=== PATIENT | male | born 1935 | race Caucasian/White ===

== ENCOUNTER → 2018-07-13 | Outpatient (CLI) | payer MEDICARE, OTHER ==
[2018-07-13 19:52] LABS: BASO % 0.4 % (0.0-1.0); EOS # 0.4 10^3/uL (0.0-0.50); EOS % 5.5 % (0.0-3.0); HEMOGLOBIN 13.5 g/dl (13.5-17.5); IMMATURE GRANULOCYTE % 0.9 % (0-3.0); LYMPH # 2.1 10^3/uL (1.5-4.5); LYMPH % 30.1 % (24.0-44.0); MEAN CORPUSCULAR HEMOGLOBIN 29.9 pg (27.0-33.0); MEAN CORPUSCULAR HGB CONC 32.1 g/dl (32.0-36.5); MEAN CORPUSCULAR VOLUME 92.9 fl (80.0-96.0); MONO # 0.8 10^3/uL (0.0-0.8); MONO % 12.3 % (0.0-5.0); NEUTROPHILS # 3.5 10^3/uL (1.8-7.7); NEUTROPHILS % 50.8 % (36.0-66.0); PLATELET COUNT, AUTOMATED 278 10^3/uL (150-450); RED BLOOD COUNT 4.52 10^6/uL (4.30-6.10); RED CELL DISTRIBUTION WIDTH 12.3 % (11.5-14.5); WHITE BLOOD COUNT 6.9 10^3/uL (4.0-10.0)
[2018-07-13 19:57] LABS: ALBUMIN 3.7 GM/DL (3.2-5.2); ALBUMIN/GLOBULIN RATIO 1.28 (1.00-1.93); ALKALINE PHOSPHATASE 62 U/L (45-117); ALT/SGPT 18 U/L (12-78); ANION GAP 6 MEQ/L (8-16); AST/SGOT 11 U/L (7-37); BILIRUBIN,TOTAL 0.3 MG/DL (0.2-1.0); BLOOD UREA NITROGEN 14 MG/DL (7-18); CALCIUM LEVEL 8.9 MG/DL (8.8-10.2); CARBON DIOXIDE LEVEL 28 MEQ/L (21-32); CHLORIDE LEVEL 108 MEQ/L (98-107); CREATININE FOR GFR 1.08 MG/DL (0.70-1.30); GLOMERULAR FILTRATION RATE > 60.0 (>35); GLUCOSE, FASTING 114 MG/DL (70-100); POTASSIUM SERUM 4.8 MEQ/L (3.5-5.1); SODIUM LEVEL 142 MEQ/L (136-145); TOTAL PROTEIN 6.6 GM/DL (6.4-8.2)
[2018-07-13 20:04] LABS: ESTIMATED AVERAGE GLUCOSE 137 MG/DL (60-110); HEMOGLOBIN A1c 6.4 %; TOTAL 25(OH) VITAMIN D 28.4 NG/ML (30.0-100.0)
[2018-07-13 20:06] LABS: MALB URINE SIEMENS 75.1 MG/L
[2018-07-13 20:07] LABS: MAU/CREAT RATIO 57.3 MCG/MG (0.0-30.0)
== END ==
LOC: M WUC 16:12
DX: E11.9 Type 2 diabetes mellitus without complications (principal); Z51.81 Encounter for therapeutic drug level monitoring; Z79.899 Other long term (current) drug therapy
CPT/HCPCS: 80053

== ENCOUNTER 2018-08-29 13:37 | Emergency (ER) | payer MEDICARE, OTHER ==
[2018-08-29 14:24] LABS: BEDSIDE GLUCOSE 100 MG/DL (83-110)
[2018-08-29 14:25] LABS: BASO % 0.2 % (0.0-1.0); EOS # 0.3 10^3/uL (0.0-0.50); EOS % 3.6 % (0.0-3.0); HEMATOCRIT 42.8 % (42.0-52.0); HEMOGLOBIN 14.1 g/dl (13.5-17.5); IMMATURE GRANULOCYTE % 0.7 % (0-3.0); LYMPH # 2.4 10^3/uL (1.5-4.5); LYMPH % 28.5 % (24.0-44.0); MEAN CORPUSCULAR HEMOGLOBIN 29.9 pg (27.0-33.0); MEAN CORPUSCULAR HGB CONC 32.9 g/dl (32.0-36.5); MEAN CORPUSCULAR VOLUME 90.7 fl (80.0-96.0); MONO # 0.9 10^3/uL (0.0-0.8); MONO % 10.9 % (0.0-5.0); NEUTROPHILS # 4.8 10^3/uL (1.8-7.7); NEUTROPHILS % 56.1 % (36.0-66.0); PLATELET COUNT, AUTOMATED 275 10^3/uL (150-450); RED BLOOD COUNT 4.72 10^6/uL (4.30-6.10); WHITE BLOOD COUNT 8.5 10^3/uL (4.0-10.0)
[2018-08-29 14:42] LABS: AMMONIA < 10 uMOL/L (<32)
[2018-08-29 15:01] LABS: KETONE, URINE AUTO RFX TRACE mg/dL (NEGATIVE); LEUKOCYTE ESTERASE UR AUTO RFX NEGATIVE (NEGATIVE); NITRITE, URINE AUTO RFX NEGATIVE (NEGATIVE); RBC, URINE AUTO RFX 4 /HPF (0-3); SPECIFIC GRAVITY UR AUTO RFX 1.018 (1.002-1.035); SQUAM EPITHELIAL CELL UR AURFX 0 /HPF (0-6); WBC, URINE AUTO RFX 2 /HPF (0-3)
[2018-08-29 15:04] LABS: ALBUMIN 3.9 GM/DL (3.2-5.2); ALKALINE PHOSPHATASE 59 U/L (45-117); ALT/SGPT 18 U/L (12-78); ANION GAP 8 MEQ/L (8-16); AST/SGOT 8 U/L (7-37); BILIRUBIN,DIRECT 0.1 MG/DL (0.0-0.2); BILIRUBIN,TOTAL 0.5 MG/DL (0.2-1.0); BLOOD UREA NITROGEN 19 MG/DL (7-18); CALCIUM LEVEL 8.9 MG/DL (8.8-10.2); CARBON DIOXIDE LEVEL 26 MEQ/L (21-32); CHLORIDE LEVEL 105 MEQ/L (98-107); CK-MB VALUE MASS < 1.0 NG/ML (<3.6); CPK CREATINE PHOSPHOKINASE 46 U/L (39-308); CREATININE FOR GFR 1.14 MG/DL (0.70-1.30); GLOMERULAR FILTRATION RATE > 60.0 (>35); GLUCOSE, FASTING 103 MG/DL (70-100); MB/CK RELATIVE INDEX 2.17 (< OR =4); POTASSIUM SERUM 4.4 MEQ/L (3.5-5.1); SODIUM LEVEL 139 MEQ/L (136-145); TOTAL PROTEIN 6.9 GM/DL (6.4-8.2); TROPONIN I < 0.02 NG/ML (< 0.10)
== END 2018-08-29 16:26 | disposition home or self-care (01) ==
LOC: M ED 13:37
DX: R53.1 Weakness (principal); G20 Parkinson's disease; I10 Essential (primary) hypertension; E78.9 Disorder of lipoprotein metabolism, unspecified; G47.30 Sleep apnea, unspecified; M19.90 Unspecified osteoarthritis, unspecified site; Z86.73 Personal history of transient ischemic attack (TIA), and cerebral infarction without residual deficits; Z79.899 Other long term (current) drug therapy; Z87.891 Personal history of nicotine dependence
CPT/HCPCS: 71045

== ENCOUNTER → 2018-11-04 | Outpatient (CLI) | payer MEDICARE, OTHER ==
[~2018-11-04] MED LIST: AGGR1CAP; ASPI1CAP3; ATOR1TAB19; CBD OIL; CITA20TA4; E-Z-PAQUE 96% w/w SUSP 176GM BTL As Ordered ONE; LOSA25TA14; RASA1TAB; ROPI1TAB; TRAZ-160; VARIBAR NECTAR 40% w/v 240ML SUSP BTL As Ordered ONE; VARIBAR PUDDING 40% w/v 230ML TUBE As Ordered ONE; VITA200016 PO
--- NOTE | 2018-11-04 16:13 | REP ---
MODIFIED BARIUM SWALLOW: 11/04/2018. Clinical history: Parkinson's disease, dysphagia. Findings: Exam conducted with lateral fluoroscopy provided for the speech pathology department, Patti Blum supervising. Lateral fluoroscopy with thin liquids from a cup showed some pooling in the valleculae which cleared with secondary swallow. No laryngeal penetration or aspiration. There was good bolus formation and transfer of thin liquid. There was slight delay with transfer of the pudding consistency, but also the bolus formation was adequate and there was no aspiration or penetration. With cookie and bread consistency, there was bolus formation, but poor translation with significant delay. Eventually the bolus was swallowed with the head tilted back. Again no laryngeal aspiration or penetration. No pooling. Please see speech pathology report for final assessment and recommendations. Fluoroscopy time: 2.1 minutes. Electronically Signed by Ash Smalls MD 11/04/2018 07:37 P
== END ==
LOC: M RAD 11:43
PROVIDERS: ATTEND Psychiatry & Neurology Neurology
DX: R13.12 Dysphagia, oropharyngeal phase (principal)

== ENCOUNTER 2018-11-08 13:30 | Outpatient (RCR) | payer MEDICARE, OTHER ==
--- NOTE | 2018-10-20 10:56 | NUR ---
Based on results of clinician swallowing assessment Mr. 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 The clinician recommends a MBS be completed to determine safest and least restrictive diet and effectiveness of compensatory strategies. After MBS ST recommends he return to outpatient therapy for dysphagia management and speech therapy. Addendum: 10/20/18 at 1059 by JASEN PINON Amended: Links added.
--- NOTE | 2018-11-04 15:27 | NUR ---
Patient presents with mild oropharyngeal dysphagia characterized by decreased oral coordination, delayed A/P transit on solid consistency, and pharyngeal residue after the initial swallow, which pt was able to clear with repeat swallow or liquid wash. There were no signs of aspiration or penetration during the assessment. Based on these results, the clinician recommends a regular diet as tolerated and thin liquids. The clinician will provide follow up therapy session as scheduled to review results of assessment and teach safe feeding strategies to maximize safety during PO intake. Addendum: 11/04/18 at 1530 by JASEN PINON Amended: Links added.
[~2018-11-08 13:30] MED LIST changes: -E-Z-PAQUE 96% w/w SUSP 176GM BTL As Ordered ONE; -VARIBAR NECTAR 40% w/v 240ML SUSP BTL As Ordered ONE; -VARIBAR PUDDING 40% w/v 230ML TUBE As Ordered ONE
== END 2018-11-11 ==
LOC: M ST 13:30
PROVIDERS: ATTEND Psychiatry & Neurology Neurology
DX: Z51.89 Encounter for other specified aftercare (principal); G20 Parkinson's disease

== ENCOUNTER → 2018-12-08 | Outpatient (REF) | payer MEDICARE, OTHER ==
[2018-12-08 13:27] LABS: BASO % 0.4 % (0.0-1.0); EOS # 0.3 10^3/uL (0.0-0.50); EOS % 3.4 % (0.0-3.0); HEMATOCRIT 41.2 % (42.0-52.0); HEMOGLOBIN 13.5 g/dl (13.5-17.5); LYMPH # 2.1 10^3/uL (1.5-4.5); LYMPH % 29.3 % (24.0-44.0); MEAN CORPUSCULAR HEMOGLOBIN 29.7 pg (27.0-33.0); MEAN CORPUSCULAR HGB CONC 32.8 g/dl (32.0-36.5); MEAN CORPUSCULAR VOLUME 90.7 fl (80.0-96.0); MONO # 0.7 10^3/uL (0.0-0.8); MONO % 9.5 % (0.0-5.0); NEUTROPHILS # 4.1 10^3/uL (1.8-7.7); NEUTROPHILS % 56.4 % (36.0-66.0); PLATELET COUNT, AUTOMATED 286 10^3/uL (150-450); RED BLOOD COUNT 4.54 10^6/uL (4.30-6.10); WHITE BLOOD COUNT 7.3 10^3/uL (4.0-10.0)
[2018-12-08 13:37] LABS: AMORPHOUS SEDIMENT SMALL (NEGATIVE); APPEARANCE, URINE TURBID (CLEAR); BACTERIA, URINE AUTO NEGATIVE (NEGATIVE); BILIRUBIN, URINE AUTO NEGATIVE (NEGATIVE); BLOOD, URINE BLOOD NEGATIVE (NEGATIVE); COLOR, URINE YELLOW (YELLOW); GLUCOSE, URINE (UA) AUTO NEGATIVE (NEGATIVE); KETONE, URINE AUTO NEGATIVE (NEGATIVE); LEUKOCYTE ESTERASE, URINE AUTO NEGATIVE (NEGATIVE); NITRITE, URINE AUTO NEGATIVE (NEGATIVE); PROTEIN, URINE AUTO NEGATIVE (NEGATIVE); RBC, URINE AUTO 2 /HPF (0-3); SPECIFIC GRAVITY URINE AUTO 1.015 (1.002-1.035); SQUAMOUS EPITHELIAL CELL UR AU 0 /HPF (0-6); UROBILINOGEN, URINE AUTO 0.2 mg/dL (0.0-2.0); WBC, URINE AUTO 0 /HPF (0-3)
[2018-12-08 13:59] LABS: HEMOGLOBIN A1c 6.9 %
[2018-12-08 14:03] LABS: ALBUMIN 3.6 GM/DL (3.2-5.2); ALT/SGPT 16 U/L (12-78); BILIRUBIN,TOTAL 0.5 MG/DL (0.2-1.0); BLOOD UREA NITROGEN 21 MG/DL (7-18); CALCIUM LEVEL 9.2 MG/DL (8.8-10.2); CARBON DIOXIDE LEVEL 29 MEQ/L (21-32); CHLORIDE LEVEL 107 MEQ/L (98-107); CREATININE FOR GFR 1.01 MG/DL (0.70-1.30); GLOMERULAR FILTRATION RATE > 60.0 (>35); GLUCOSE, FASTING 107 MG/DL (70-100); POTASSIUM SERUM 4.4 MEQ/L (3.5-5.1); SODIUM LEVEL 141 MEQ/L (136-145); TOTAL PROTEIN 6.6 GM/DL (6.4-8.2)
== END ==
LOC: M LABDRAW1 11:34
PROVIDERS: ATTEND Family Medicine
DX: R53.81 Other malaise (principal); E11.9 Type 2 diabetes mellitus without complications

== ENCOUNTER → 2019-04-15 | Outpatient (CLI) | payer MEDICARE, OTHER ==
[~2019-04-15] MED LIST changes: -CITA20TA4; +CITA20TA6; +NORC1TAB7 PO; -TRAZ-160; +TRAZ-252; +ZOFR4TAB16 PO
[2019-04-15 16:20] LABS: WHITE BLOOD COUNT 7.3 10^3/uL (4.0-10.0)
[2019-04-15 16:21] LABS: BASO % 0.4 % (0.0-1.0); EOS # 0.3 10^3/uL (0.0-0.50); EOS % 4.2 % (0.0-3.0); HEMATOCRIT 42.1 % (42.0-52.0); HEMOGLOBIN 13.6 g/dl (13.5-17.5); LYMPH # 2.1 10^3/uL (1.5-4.5); LYMPH % 28.8 % (24.0-44.0); MEAN CORPUSCULAR HEMOGLOBIN 30.8 pg (27.0-33.0); MEAN CORPUSCULAR HGB CONC 32.3 g/dl (32.0-36.5); MEAN CORPUSCULAR VOLUME 95.2 fl (80.0-96.0); MONO # 0.9 10^3/uL (0.0-0.8); MONO % 11.7 % (0.0-5.0); NEUTROPHILS % 54.1 % (36.0-66.0); PLATELET COUNT, AUTOMATED 266 10^3/uL (150-450); RED BLOOD COUNT 4.42 10^6/uL (4.30-6.10)
[2019-04-15 16:30] LABS: APPEARANCE, URINE HAZY (CLEAR); BACTERIA, URINE AUTO NEGATIVE (NEGATIVE); BILIRUBIN, URINE AUTO NEGATIVE (NEGATIVE); BLOOD, URINE BLOOD NEGATIVE (NEGATIVE); COLOR, URINE YELLOW (YELLOW); GLUCOSE, URINE (UA) AUTO NEGATIVE (NEGATIVE); KETONE, URINE AUTO NEGATIVE (NEGATIVE); LEUKOCYTE ESTERASE, URINE AUTO TRACE (NEGATIVE); MUCUS, URINE SMALL (NEGATIVE); NITRITE, URINE AUTO NEGATIVE (NEGATIVE); PROTEIN, URINE AUTO NEGATIVE (NEGATIVE); RBC, URINE AUTO 4 /HPF (0-3); SPECIFIC GRAVITY URINE AUTO 1.019 (1.002-1.035); SQUAMOUS EPITHELIAL CELL UR AU 0 /HPF (0-6); UROBILINOGEN, URINE AUTO 0.2 mg/dL (0.0-2.0); WBC, URINE AUTO 2 /HPF (0-3)
[2019-04-15 16:58] LABS: ALBUMIN 3.7 GM/DL (3.2-5.2); ALT/SGPT 16 U/L (12-78); BILIRUBIN,TOTAL 0.5 MG/DL (0.2-1.0); BLOOD UREA NITROGEN 22 MG/DL (7-18); CALCIUM LEVEL 8.9 MG/DL (8.8-10.2); CARBON DIOXIDE LEVEL 30 MEQ/L (21-32); CHLORIDE LEVEL 108 MEQ/L (98-107); CREATININE FOR GFR 1.22 MG/DL (0.70-1.30); FOLATE 14.1 NG/ML; GLOMERULAR FILTRATION RATE > 60.0 (>35); GLUCOSE, FASTING 83 MG/DL (70-100); POTASSIUM SERUM 4.6 MEQ/L (3.5-5.1); SODIUM LEVEL 143 MEQ/L (136-145); THYROID STIMULATING HORMONE 0.627 uIU/ML (0.358-3.740); TOTAL 25(OH) VITAMIN D 29.5 NG/ML (30.0-100.0); TOTAL PROTEIN 6.8 GM/DL (6.4-8.2); VITAMIN B12 LEVEL 1499 PG/ML
== END ==
LOC: M WUC 13:57
PROVIDERS: ATTEND Psychiatry & Neurology Neurology
DX: R53.83 Other fatigue (principal); R53.81 Other malaise; N39.0 Urinary tract infection, site not specified; E55.9 Vitamin D deficiency, unspecified; E53.8 Deficiency of other specified B group vitamins

== ENCOUNTER 2019-04-21 11:29 | Emergency (ER) | payer MEDICARE, OTHER ==
[~2019-04-21] VITALS: Ht 180.3 cm; Wt 90.4 kg
[~2019-04-21 11:29] MED LIST changes: -NORC1TAB7 PO; -ZOFR4TAB16 PO
[2019-04-21] MEDS ORDERED: NS 1,000 ML IV SCH (13:08)
[2019-04-21] MEDS ORDERED: PANTOPRAZOLE 40MG INJ (PROTONIX) (C9113) IV ONE (13:15)
[2019-04-21] MEDS ORDERED: ONDANSETRON 4MG/2ML VIAL (J2405) IV ONE (13:15)
[2019-04-21 13:38] LABS: BASO % 0.4 % (0.0-1.0); EOS # 0.3 10^3/uL (0.0-0.50); EOS % 3.9 % (0.0-3.0); HEMATOCRIT 42.1 % (42.0-52.0); HEMOGLOBIN 14.1 g/dl (13.5-17.5); LYMPH # 1.9 10^3/uL (1.5-4.5); MEAN CORPUSCULAR HEMOGLOBIN 31.3 pg (27.0-33.0); MEAN CORPUSCULAR HGB CONC 33.5 g/dl (32.0-36.5); MEAN CORPUSCULAR VOLUME 93.3 fl (80.0-96.0); MONO # 0.9 10^3/uL (0.0-0.8); MONO % 11.6 % (0.0-5.0); NEUTROPHILS # 4.9 10^3/uL (1.8-7.7); NEUTROPHILS % 60.5 % (36.0-66.0); PLATELET COUNT, AUTOMATED 272 10^3/uL (150-450); RED BLOOD COUNT 4.51 10^6/uL (4.30-6.10); WHITE BLOOD COUNT 8.1 10^3/uL (4.0-10.0)
[2019-04-21 13:50] LABS: INR 0.99; PROTHROMBIN TIME 12.8 SECONDS (11.8-14.0)
[2019-04-21 14:09] LABS: ALBUMIN 3.6 GM/DL (3.2-5.2); BILIRUBIN,DIRECT 0.1 MG/DL (0.0-0.2); BILIRUBIN,TOTAL 0.5 MG/DL (0.2-1.0); CALCIUM LEVEL 9.3 MG/DL (8.8-10.2); CREATININE FOR GFR 1.31 MG/DL (0.70-1.30); GLOMERULAR FILTRATION RATE 55.5 (>35); POTASSIUM SERUM 4.5 MEQ/L (3.5-5.1); TOTAL PROTEIN 6.8 GM/DL (6.4-8.2)
[2019-04-21] MEDS ORDERED: MORPHINE 4 MG/ML 1ML VIAL/SYRINGE (J2270) IV ONE (15:00)
--- NOTE | 2019-04-21 15:08 | REP ---
CT ABDOMEN AND PELVIS WITHOUT CONTRAST: CT abdomen and pelvis performed without oral or IV contrast. Sagittal and coronal reconstruction images are performed. There is mild fibroatelectatic change in each lung base. Multiple cysts are seen in the liver, largest is 3 cm in diameter. No gross gallbladder abnormality is seen. I do not see evidence of biliary dilatation. The spleen is normal in size. Adrenals and pancreas are grossly unremarkable. Right kidney is grossly unremarkable. There is no hydronephrosis bilaterally. Dominant cyst in the lower pole of the left kidney measures 6.5 cm in diameter. There is a small cyst in the left upper pole. There is moderate atherosclerotic calcification of the abdominal aorta without aneurysm. There is no adenopathy. There is no free air or free fluid. There is no bowel wall thickening. There are scattered diverticula of the colon, predominantly in the sigmoid colon, but I do not see evidence of acute diverticulitis. The appendix is normal. There are small bilateral inguinal hernias containing fat. Urinary bladder is grossly unremarkable. There are degenerative changes of the spine. IMPRESSION: Multiple cysts in the liver and left kidney. Scattered diverticula of the colon predominantly in the sigmoid colon. No free air or free fluid. No adenopathy. Normal appendix. Bilateral inguinal hernias contain fat. Electronically Signed by Octavio Winters MD 04/21/2019 03:23 P
[2019-04-21] MEDS ORDERED: ZOFR4TAB16 PO (15:40)
[2019-04-21] MEDS ORDERED: NORC1TAB7 PO (15:40)
[2019-04-21 16:35] VITALS: BP 140/90
== END 2019-04-21 16:40 | disposition home or self-care (01) ==
LOC: M ED 11:29
DX: K85.90 Acute pancreatitis without necrosis or infection, unspecified (principal); I10 Essential (primary) hypertension; E78.5 Hyperlipidemia, unspecified; G20 Parkinson's disease; Z79.899 Other long term (current) drug therapy
CPT/HCPCS: 74176; 80048; 80076; 81001; 83690; 85025; 85610; 87086; 96374; 96375; 99284; C9113; J2270; J2405

== ENCOUNTER → 2019-04-26 | Outpatient (CLI) | payer MEDICARE, OTHER ==
[~2019-04-26] MED LIST changes: +NORC1TAB7 PO; +ZOFR4TAB16 PO
[2019-04-26 17:23] LABS: ALBUMIN 3.6 GM/DL (3.2-5.2); BILIRUBIN,TOTAL 0.2 MG/DL (0.2-1.0); CALCIUM LEVEL 9.4 MG/DL (8.8-10.2); CREATININE FOR GFR 1.3 MG/DL (0.70-1.30); TOTAL PROTEIN 6.9 GM/DL (6.4-8.2)
== END ==
LOC: M WUC 15:15
PROVIDERS: ATTEND Family Medicine
DX: K85.90 Acute pancreatitis without necrosis or infection, unspecified (principal)

== ENCOUNTER 2019-08-08 09:55 | Day surgery (SDC) | payer MEDICARE, OTHER ==
[~2019-08-08] VITALS: Ht 180.3 cm; Wt 84.8 kg
[~2019-08-08 09:55] MED LIST changes: -AGGR1CAP; +AGGR1CAP PO; -ATOR1TAB19; +ATOR1TAB19 PO; -CBD OIL; +CBD OIL PO; -CITA20TA6; +CITA20TA6 PO; +LIDOCAINE 2% INJ 100 MG/5 ML SDV (FOR ANES.) As Ordered ONE; -LOSA25TA14; +LOSA25TA14 PO; +MEDICAL MARIJUANA PO; +NS 1,000 ML IV ONE; +PROPOFOL 200 MG/20 ML VIAL As Ordered ONE; -RASA1TAB; +RASA1TAB PO; -ROPI1TAB; +ROPI1TAB PO; -TRAZ-252; +TRAZ-252 PO
[2019-08-08] MEDS ORDERED: fentaNYL 100 MCG/2 ML INJECTION (J3010) As Ordered ONE (10:24)
--- NOTE | 2019-08-08 11:19 | ROOR ---
Patient Name: Carlos Pryor Procedure Date: 08/08/2019 10:53 AM Date of : 1935 Age: 83 Room: [facility] Gender: Male Note Status: Finalized Procedure: Upper GI endoscopy + Balloon Dilatation Indications: Dysphagia, Heartburn Providers: Serafin Vazquez MD Referring MD: Sam Frederick MD Requesting Provider: Medicines: Monitored Anesthesia Care Complications: No immediate complications. Procedure: Pre-Anesthesia Assessment: - The heart rate, respiratory rate, oxygen saturations, blood pressure, adequacy of pulmonary ventilation, and response to care were monitored throughout the procedure. The Endoscope was introduced through the mouth, and advanced to the second part of duodenum. The upper GI endoscopy was accomplished without difficulty. The patient tolerated the procedure well. Findings: The Z-line was regular and was found 40 cm from the incisors. A obstructing Schatzki ring was found at the gastroesophageal junction. The dilation site was examined and showed moderate mucosal disruption and complete resolution of luminal narrowing. A medium-sized hiatal hernia was present. No other significant abnormalities were identified in a careful examination of the stomach. The exam of the duodenum was otherwise normal. Impression: - Z-line regular, 40 cm from the incisors. - Obstructing Schatzki ring. - Medium-sized hiatal hernia. - No specimens collected. - The examination was otherwise normal. Recommendation: - Patient has a contact number available for emergencies. The signs and symptoms of potential delayed complications were discussed with the patient. Return to normal activities tomorrow. Written discharge instructions were provided to the patient. - Soft diet for 2 days. - Advance diet as tolerated. - Continue present medications. - Return to referring physician. - Resume antiplatelet medication at prior dose in 2 days. - The findings and recommendations were discussed with the patient's family. Serafin Vazquez MD Serafin Vazquez MD 08/08/2019 11:18:56 AM Electronically signed by Serafin Vazquez MD Number of Addenda: 0 Note Initiated On: 08/08/2019 10:53 AM Estimated Blood Loss: Estimated blood loss: none.
[2019-08-08] MEDS ORDERED: GLYCOPYRROLATE INJ 0.2 MG/ML 2 ML VIAL As Ordered ONE (11:22)
--- NOTE | 2019-08-08 11:34 | ROOR ---
Patient Name: Carlos Pryor Procedure Date: 08/08/2019 10:53 AM Date of : 1935 Age: 83 Room: [facility] Gender: Male Note Status: Finalized Procedure: Total Colonoscopy to Cecum Indications: Abdominal pain in the left lower quadrant Providers: Serafin Vazquez MD Referring MD: Sam Frederick MD Requesting Provider: Medicines: Monitored Anesthesia Care Complications: No immediate complications. Procedure: Pre-Anesthesia Assessment: - The heart rate, respiratory rate, oxygen saturations, blood pressure, adequacy of pulmonary ventilation, and response to care were monitored throughout the procedure. The Colonoscope was introduced through the anus and advanced to the cecum, identified by appendiceal orifice and ileocecal valve. The colonoscopy was performed without difficulty. The patient tolerated the procedure well. The quality of the bowel preparation was fair. Findings: The perianal and digital rectal examinations were normal. Non-bleeding internal hemorrhoids were found during retroflexion. The hemorrhoids were small and Grade I (internal hemorrhoids that do not prolapse). Multiple small and large-mouthed diverticula were found in the recto-sigmoid colon, sigmoid colon and descending colon. The exam was otherwise without abnormality on direct and retroflexion views. Impression: - Preparation of the colon was fair. - Non-bleeding internal hemorrhoids. - Diverticulosis in the recto-sigmoid colon, in the sigmoid colon and in the descending colon. - The examination was otherwise normal on direct and retroflexion views. - No specimens collected. - The exam was otherwise normal to the cecum. Recommendation: - Patient has a contact number available for emergencies. The signs and symptoms of potential delayed complications were discussed with the patient. Return to normal activities tomorrow. Written discharge instructions were provided to the patient. - High fiber diet. - Discharge patient to home. - Continue present medications. - Repeat colonoscopy for symptoms only. - Return to referring physician. - The findings and recommendations were discussed with the patient's family. Serafin Vazquez MD Serafin Vazquez MD 08/08/2019 11:33:57 AM Electronically signed by Serafin Vazquez MD Number of Addenda: 0 Note Initiated On: 08/08/2019 10:53 AM Estimated Blood Loss: Estimated blood loss: none.
[2019-08-08 12:00] VITALS: BP 202/79
== END 2019-08-08 12:21 | disposition home or self-care (01) ==
LOC: M OPP 09:55
PROVIDERS: ATTEND Internal Medicine Gastroenterology
DX: K64.0 First degree hemorrhoids (principal); R10.32 Left lower quadrant pain; K57.30 Diverticulosis of large intestine without perforation or abscess without bleeding; K22.2 Esophageal obstruction; K44.9 Diaphragmatic hernia without obstruction or gangrene; R12 Heartburn; R13.10 Dysphagia, unspecified; G47.30 Sleep apnea, unspecified; Z79.891 Long term (current) use of opiate analgesic; Z79.899 Other long term (current) drug therapy
CPT/HCPCS: 43235; 45378; J3010

== ENCOUNTER → 2019-12-27 | Outpatient (CLI) | payer MEDICARE, OTHER ==
[~2019-12-27] MED LIST changes: -LIDOCAINE 2% INJ 100 MG/5 ML SDV (FOR ANES.) As Ordered ONE; -NS 1,000 ML IV ONE; -PROPOFOL 200 MG/20 ML VIAL As Ordered ONE; -ROPI1TAB PO; +ROPI1TAB3 PO
[2019-12-27 09:24] LABS: HEMATOCRIT 40.9 % (42.0-52.0); HEMOGLOBIN 13.6 g/dl (13.5-17.5); MEAN CORPUSCULAR HEMOGLOBIN 30.6 pg (27.0-33.0); MEAN CORPUSCULAR HGB CONC 33.3 g/dl (32.0-36.5); MEAN CORPUSCULAR VOLUME 92.1 fl (80.0-96.0); PLATELET COUNT, AUTOMATED 275 10^3/uL (150-450); RED BLOOD COUNT 4.44 10^6/uL (4.30-6.10)
[2019-12-27 09:41] LABS: HEMOGLOBIN A1c 7.5 %
[2019-12-27 09:49] LABS: ALBUMIN 3.4 GM/DL (3.2-5.2); ALT/SGPT 17 U/L (12-78); BILIRUBIN,TOTAL 0.6 MG/DL (0.2-1.0); BLOOD UREA NITROGEN 23 MG/DL (7-18); CALCIUM LEVEL 9.1 MG/DL (8.8-10.2); CARBON DIOXIDE LEVEL 29 MEQ/L (21-32); CHLORIDE LEVEL 108 MEQ/L (98-107); CHOLESTEROL LEVEL 166 MG/DL (<200); CHOLESTEROL RISK RATIO 3.254 (<5); GLOMERULAR FILTRATION RATE > 60.0 (>35); GLUCOSE, FASTING 135 MG/DL (70-100); HDL CHOLESTEROL 51 MG/DL (>40); LDL CHOLESTEROL 98 MG/DL (<100); NON-HDL-C 115 MG/DL; POTASSIUM SERUM 4.8 MEQ/L (3.5-5.1); SODIUM LEVEL 141 MEQ/L (136-145); TOTAL PROTEIN 6.7 GM/DL (6.4-8.2); TRIGLYCERIDES LEVEL 84 MG/DL (<150)
== END ==
LOC: M WUC 08:20
PROVIDERS: ATTEND Family Medicine
DX: E11.9 Type 2 diabetes mellitus without complications (principal)

== ENCOUNTER → 2020-11-22 | Outpatient (CLI) | payer MEDICARE, OTHER ==
[2020-11-22 16:29] LABS: ALBUMIN 3.8 GM/DL (3.2-5.2); BILIRUBIN,TOTAL 0.3 MG/DL (0.2-1.0); CALCIUM LEVEL 9.1 MG/DL (8.8-10.2); CREATININE FOR GFR 1.42 MG/DL (0.70-1.30); GLOMERULAR FILTRATION RATE 50.3 (>35); POTASSIUM SERUM 4.5 MEQ/L (3.5-5.1); TOTAL PROTEIN 6.5 GM/DL (6.4-8.2)
[2020-11-22 16:35] LABS: HEMATOCRIT 38.8 % (42.0-52.0); HEMOGLOBIN 12.4 g/dl (13.5-17.5); MEAN CORPUSCULAR HEMOGLOBIN 29.8 pg (27.0-33.0); MEAN CORPUSCULAR VOLUME 93.3 fl (80.0-96.0); PLATELET COUNT, AUTOMATED 279 10^3/uL (150-450); RED BLOOD COUNT 4.16 10^6/uL (4.30-6.10); WHITE BLOOD COUNT 6.9 10^3/uL (4.0-10.0)
== END ==
LOC: M WUC 14:20
PROVIDERS: ATTEND Family Medicine
DX: E11.9 Type 2 diabetes mellitus without complications (principal)

== ENCOUNTER 2021-02-07 09:55 | Emergency (ER) | payer MEDICARE, OTHER ==
[~2021-02-07] VITALS: Ht 180.3 cm; Wt 93.2 kg
[~2021-02-07 09:55] MED LIST changes: -CARB-89 PO; -CEPH500C
[2021-02-07] MEDS ORDERED: CARB-89 PO (10:23)
[2021-02-07] MEDS ORDERED: CEPH500C (10:23)
[2021-02-07 12:01] VITALS: BP 152/78
== END 2021-02-07 12:03 | disposition home or self-care (01) ==
LOC: M ED 09:55
DX: L98.9 Disorder of the skin and subcutaneous tissue, unspecified (principal); I10 Essential (primary) hypertension; E78.5 Hyperlipidemia, unspecified; G20 Parkinson's disease; G47.30 Sleep apnea, unspecified; Z79.899 Other long term (current) drug therapy
CPT/HCPCS: 11102; 99283; G0463

== ENCOUNTER → 2021-02-07 | Outpatient (REF) | payer MEDICARE, OTHER ==
[~2021-02-07] MED LIST changes: +CARB-89 PO; +CEPH500C
== END ==
LOC: M LAB REF 16:54
PROVIDERS: ATTEND Dermatology
DX: C44.622 Squamous cell carcinoma of skin of right upper limb, including shoulder (principal)

== ENCOUNTER → 2021-02-13 | Outpatient (REF) | payer MEDICARE, OTHER ==
[~2021-02-13] MED LIST changes: +CARB-89 PO; +CEPH500C
== END ==
LOC: M LAB REF 19:14
PROVIDERS: ATTEND Dermatology
DX: C44.622 Squamous cell carcinoma of skin of right upper limb, including shoulder (principal)

== ENCOUNTER → 2021-06-20 | Outpatient (REF) | payer MEDICARE, OTHER | LOC: M LAB REF 17:31 | PROVIDERS: ATTEND Physician Assistant | DX: C44.519 Basal cell carcinoma of skin of other part of trunk (principal) | CPT/HCPCS: 11102; 17000; 88305; G0463 ==

== ENCOUNTER → 2021-10-11 | Outpatient (REF) | payer MEDICARE, OTHER ==
[~2021-10-11] MED LIST changes: +LOSA25TA13 PO; -LOSA25TA14 PO
== END ==
LOC: M LAB REF 17:02
PROVIDERS: ATTEND Dermatology
DX: C44.519 Basal cell carcinoma of skin of other part of trunk (principal); L90.5 Scar conditions and fibrosis of skin

== ENCOUNTER → 2021-10-21 | Outpatient (CLI) | payer MEDICARE, OTHER ==
[2021-10-21 12:33] LABS: HEMATOCRIT 38.9 % (42.0-52.0); HEMOGLOBIN 12.5 g/dl (13.5-17.5); MEAN CORPUSCULAR HEMOGLOBIN 30.1 pg (27.0-33.0); MEAN CORPUSCULAR HGB CONC 32.1 g/dl (32.0-36.5); MEAN CORPUSCULAR VOLUME 93.7 fl (80.0-96.0); PLATELET COUNT, AUTOMATED 275 10^3/uL (150-450); RED BLOOD COUNT 4.15 10^6/uL (4.30-6.10); WHITE BLOOD COUNT 8.2 10^3/uL (4.0-10.0)
[2021-10-21 13:07] LABS: ALBUMIN 3.5 GM/DL (3.2-5.2); BILIRUBIN,TOTAL 0.4 MG/DL (0.2-1.0); CALCIUM LEVEL 9.2 MG/DL (8.8-10.2); CHOLESTEROL RISK RATIO 4.444 (<5); CREATININE FOR GFR 1.3 MG/DL (0.70-1.30); GLOMERULAR FILTRATION RATE 55.6 (>35); POTASSIUM SERUM 4.8 MEQ/L (3.5-5.1); TOTAL PROTEIN 6.7 GM/DL (6.4-8.2)
[2021-10-21 14:09] LABS: MAU/CREAT RATIO 59.3 MCG/MG (0.0-30.0)
[2021-10-21 14:45] LABS: TOTAL 25(OH) VITAMIN D 42.5 NG/ML (30.0-100.0)
[2021-10-22 08:37] LABS: MAGNESIUM LEVEL 2.1 MG/DL (1.7-2.2)
== END ==
LOC: M WUC 08:51
PROVIDERS: ATTEND Family Medicine
DX: E11.9 Type 2 diabetes mellitus without complications (principal); Z79.899 Other long term (current) drug therapy

== ENCOUNTER → 2021-12-20 | Outpatient (REF) | payer MEDICARE, OTHER | LOC: M SFHCDERM 13:57 | PROVIDERS: ATTEND Nurse Practitioner Family | DX: C44.212 Basal cell carcinoma of skin of right ear and external auricular canal (principal) | CPT/HCPCS: 11102; 17000; 17003; 88305; G0463 ==

== ENCOUNTER 2022-12-10 11:24 | Outpatient (RCR) | payer MEDICARE, OTHER ==
[~2022-12-10 11:24] MED LIST changes: +CARB-113 PO; -CARB-89 PO
== END 2022-12-12 ==
LOC: M ST 11:24
PROVIDERS: ATTEND Psychiatry & Neurology Neurology
DX: G20 Parkinson's disease (principal); R47.81 Slurred speech; R13.11 Dysphagia, oral phase

== ENCOUNTER 2023-05-09 09:16 | Inpatient (IN) | payer MEDICARE, OTHER ==
[~2023-05-09] VITALS: Ht 172.7 cm; Wt 95.7 kg
[~2023-05-09 09:16] MED LIST changes: -ROPI1TAB3 PO; +ROPI1TAB73 PO
[2023-05-09 10:03] LABS: BASO % 0.3 % (0.0-1.0); EOS # 0.2 10^3/uL (0.0-0.5); EOS % 2.7 % (0.0-3.0); HEMATOCRIT 34.5 % (42.0-52.0); HEMOGLOBIN 11.6 g/dl (13.5-17.5); LYMPH # 0.9 10^3/uL (1.5-5.0); LYMPH % 11.7 % (24.0-44.0); MEAN CORPUSCULAR HEMOGLOBIN 30.9 pg (27.0-33.0); MEAN CORPUSCULAR HGB CONC 33.6 g/dl (32.0-36.5); MONO # 0.6 10^3/uL (0.0-0.8); MONO % 7.7 % (2.0-8.0); NEUTROPHILS # 5.9 10^3/uL (1.5-8.5); NEUTROPHILS % 76.3 % (36.0-66.0); PLATELET COUNT, AUTOMATED 269 10^3/uL (150-450); RED BLOOD COUNT 3.75 10^6/uL (4.30-6.10); WHITE BLOOD COUNT 7.8 10^3/uL (4.0-10.0)
[2023-05-09 10:21] LABS: INR 1.03; PROTHROMBIN TIME 13.2 SECONDS (12.5-14.5)
[2023-05-09 10:22] LABS: PARTIAL THROMBOPLASTIN TIME 23.4 SECONDS (24.8-34.2)
[2023-05-09 10:33] LABS: LIPASE 38 U/L (12-53)
[2023-05-09 10:34] LABS: CPK CREATINE PHOSPHOKINASE 30 U/L (46-171)
[2023-05-09 10:35] LABS: ALBUMIN 3.4 G/DL (3.2-5.2); ALKALINE PHOSPHATASE 58 U/L (46-116); ALT/SGPT < 9 U/L (7.0-40); AST/SGOT < 8 U/L (<34); BILIRUBIN,DIRECT 0.2 MG/DL (<0.4); BILIRUBIN,TOTAL 0.5 MG/DL (0.3-1.2); BLOOD UREA NITROGEN 25 MG/DL (9-23); CALCIUM LEVEL 9.9 MG/DL (8.3-10.6); CARBON DIOXIDE LEVEL 21 MMOL/L (20-31); CHLORIDE LEVEL 107 MMOL/L (98-107); CK-MB VALUE MASS < 1.0 NG/ML (<3.6); CREATININE FOR GFR 1.69 MG/DL (0.70-1.30); GLUCOSE, FASTING 233 MG/DL (74-106); MB/CK RELATIVE INDEX 3.33 (< OR =4); SODIUM LEVEL 138 MMOL/L (136-145); TOTAL PROTEIN 6.3 G/DL (5.7-8.2)
[2023-05-09] MEDS ORDERED: NS 1,000 ML IV ONE (10:45)
[2023-05-09 10:46] LABS: PROCALCITONIN 0.06 ng/ml
[2023-05-09 12:02] LABS: CK-MB VALUE MASS < 1.0 NG/ML (<3.6)
[2023-05-09 12:03] LABS: CPK CREATINE PHOSPHOKINASE 32 U/L (46-171); MB/CK RELATIVE INDEX 3.12 (< OR =4)
[2023-05-09] MEDS ORDERED: LIDOCAINE 2% 5ML JELLY UROJET TOP ONE (13:00)
[2023-05-09] MEDS ORDERED: NS 500 ML IV ONE (16:35)
[2023-05-09] MEDS ORDERED: amLODIPine 5 MG TAB PO ONE (17:10)
[2023-05-09] MEDS ORDERED: HOME MED LIST COMPLETE! XX SCH (17:15)
[2023-05-09] MEDS ORDERED: NS 1,000 ML IV SCH (17:45)
[2023-05-09] MEDS: VITAMIN D 1,000 INTERNATIONAL UNITS TABLET PO SCH (17:59)
[2023-05-09] MEDS: SINEMET 25-100 MG TAB PO SCH ×2 (18:01→22:14)
[2023-05-09 21:29] VITALS: BP 123/74; TEMP 97.9; O2SAT 90
[2023-05-09] MEDS: HEPARIN SOD (PORCINE) 5000UNITS/ML 1ML VIAL/SYRINGE SC SCH (22:14)
[2023-05-09] MEDS: SENNA 8.6 MG TAB (SENOKOT) PO SCH (22:14)
[2023-05-09] MEDS: CitaloPRAM (CeleXA) 20 MG TAB PO SCH (22:14)
[2023-05-09] MEDS: traZODone 50 MG TAB PO SCH (22:15)
[2023-05-09] MEDS: DOCUSATE SODIUM 100MG CAPSULE PO SCH (22:15)
[2023-05-09] MEDS: ATORVASTATIN 10 MG TAB PO SCH (22:15)
[2023-05-10] VITALS (10 sets, daily range): BP systolic 140–217; BP diastolic 60–86; TEMP 98.2–99; O2SAT 89–94
[2023-05-10 06:07] LABS: MEAN CORPUSCULAR HEMOGLOBIN 29.7 pg (27.0-33.0); MEAN CORPUSCULAR HGB CONC 32.4 g/dl (32.0-36.5); MEAN CORPUSCULAR VOLUME 91.9 fl (80.0-96.0); PLATELET COUNT, AUTOMATED 254 10^3/uL (150-450); WHITE BLOOD COUNT 8.7 10^3/uL (4.0-10.0)
[2023-05-10] MEDS: HEPARIN SOD (PORCINE) 5000UNITS/ML 1ML VIAL/SYRINGE SC SCH ×3 (06:13→21:14)
[2023-05-10 06:34] LABS: CREATININE FOR GFR 1.27 MG/DL (0.70-1.30); MAGNESIUM LEVEL 1.7 MG/DL (1.8-2.4); POTASSIUM SERUM 4.2 MMOL/L (3.5-5.1)
[2023-05-10] MEDS: SENNA 8.6 MG TAB (SENOKOT) PO SCH ×2 (08:26→20:31)
[2023-05-10] MEDS: VITAMIN D 1,000 INTERNATIONAL UNITS TABLET PO SCH (08:26)
[2023-05-10] MEDS: cefTRIAXone SOD 1 GM in D5W MINI-BAG PLUS 50 ML IV SCH (08:26)
[2023-05-10] MEDS: SINEMET 25-100 MG TAB PO SCH ×4 (08:26→20:31)
[2023-05-10] MEDS: DOCUSATE SODIUM 100MG CAPSULE PO SCH ×2 (08:27→20:31)
[2023-05-10] MEDS ORDERED: DOCUSATE SODIUM 100MG CAPSULE PO SCH (09:00)
[2023-05-10] MEDS ORDERED: amLODIPine 5 MG TAB PO SCH ×2 (09:00→21:00)
[2023-05-10] MEDS ORDERED: NS 1,000 ML IV SCH (09:35)
[2023-05-10 10:03] LABS: ABG BASE EXCESS -2.2 (-2.0-2.0); ABG HCO3 20.8 MMOL/L (22.0-26.0); ABG O2 SATURATION 92.8 % (95.0-99.0); ABG PARTIAL PRESSURE CO2 30.1 mmHg (35.0-45.0); ABG PARTIAL PRESSURE O2 66.4 mmHg (75.0-100.0); ABG STANDARD HCO3 22.6 MMOL/L. (22.0-26.0); ABG TOTAL CO2 21.7 MMOL/L (23.0-31.0); ABG pH (ARTERIAL) 7.457 UNITS (7.350-7.450)
[2023-05-10] MEDS ORDERED: TAMSULOSIN 0.4 MG CAP PO SCH (10:50)
[2023-05-10 12:10] LABS: THYROID STIMULATING HORMONE 0.661 uIU/ML (0.55-4.78)
[2023-05-10] MEDS: AGGRENOX PO SCH ×3 (16:05→20:31)
[2023-05-10] MEDS: RASAGILINE MESYLATE 1 MG PO SCH (16:38)
[2023-05-10] MEDS ORDERED: LOSARTAN 25 MG TAB PO SCH (18:30)
[2023-05-10] MEDS: traZODone 50 MG TAB PO SCH (20:31)
[2023-05-10] MEDS: ATORVASTATIN 10 MG TAB PO SCH (21:12)
[2023-05-10] MEDS: CitaloPRAM (CeleXA) 20 MG TAB PO SCH (21:13)
[2023-05-10] MEDS: hydrALAZINE 20MG/ML 1ML VIAL IV PRN (22:26)
[2023-05-10] MEDS: **hydrALAZINE HCL** 25 MG TAB PO SCH (22:47)
[2023-05-11] VITALS (32 sets, daily range): BP systolic 139–222; BP diastolic 63–89; TEMP 97.6–98.3; O2SAT 87–96
[2023-05-11] MEDS ORDERED: amLODIPine 5 MG TAB PO ONE (03:00)
[2023-05-11] MEDS ORDERED: LOSARTAN 50MG TABLET PO ONE (03:00)
[2023-05-11] MEDS ORDERED: cloNIDine 0.2 MG TAB PO ONE (03:00)
[2023-05-11] MEDS: hydrALAZINE 20MG/ML 1ML VIAL IV PRN ×3 (04:34→20:13)
[2023-05-11] MEDS: HEPARIN SOD (PORCINE) 5000UNITS/ML 1ML VIAL/SYRINGE SC SCH ×3 (05:33→21:16)
[2023-05-11] MEDS: **hydrALAZINE HCL** 25 MG TAB PO SCH (05:33)
[2023-05-11] MEDS ORDERED: hydroCHLOROthiazide 12.5 MG CAPSULE PO ONE (06:00)
[2023-05-11 06:01] LABS: HEMATOCRIT 34.9 % (42.0-52.0); HEMOGLOBIN 11.5 g/dl (13.5-17.5); MEAN CORPUSCULAR VOLUME 91.1 fl (80.0-96.0); PLATELET COUNT, AUTOMATED 244 10^3/uL (150-450); RED BLOOD COUNT 3.83 10^6/uL (4.30-6.10); WHITE BLOOD COUNT 9.1 10^3/uL (4.0-10.0)
[2023-05-11 06:09] LABS: BLOOD UREA NITROGEN 17 MG/DL (9-23); CALCIUM LEVEL 8.9 MG/DL (8.3-10.6); CARBON DIOXIDE LEVEL 22 MMOL/L (20-31); CHLORIDE LEVEL 112 MMOL/L (98-107); CREATININE FOR GFR 1.11 MG/DL (0.70-1.30); GLOMERULAR FILTRATION RATE > 60.0 (>35); GLUCOSE, FASTING 174 MG/DL (74-106); MAGNESIUM LEVEL 1.7 MG/DL (1.8-2.4); POTASSIUM SERUM 4.1 MMOL/L (3.5-5.1); SODIUM LEVEL 143 MMOL/L (136-145)
[2023-05-11] MEDS: **hydrALAZINE** 50 MG TAB PO SCH ×3 (07:47→21:16)
[2023-05-11] MEDS: cefTRIAXone SOD 1 GM in D5W MINI-BAG PLUS 50 ML IV SCH (07:54)
[2023-05-11] MEDS: DOCUSATE SODIUM 100MG CAPSULE PO SCH ×2 (08:43→20:14)
[2023-05-11] MEDS: MAGNESIUM OXIDE 400MG TAB (MAG-OX) PO SCH ×2 (08:44→20:14)
[2023-05-11] MEDS: VITAMIN D 1,000 INTERNATIONAL UNITS TABLET PO SCH (08:44)
[2023-05-11] MEDS: SINEMET 25-100 MG TAB PO SCH ×4 (08:44→20:14)
[2023-05-11] MEDS: SENNA 8.6 MG TAB (SENOKOT) PO SCH ×2 (08:44→20:14)
[2023-05-11] MEDS: AGGRENOX PO SCH ×2 (08:45→20:12)
[2023-05-11] MEDS: RASAGILINE MESYLATE 1 MG PO SCH (08:45)
[2023-05-11] MEDS ORDERED: METOPROLOL SUCC *XL* 25MG TAB (TopROL *XL*) PO SCH (09:00)
[2023-05-11] MEDS ORDERED: LOSARTAN 50MG TABLET PO SCH (09:00)
[2023-05-11] MEDS ORDERED: **hydrALAZINE** 50 MG TAB PO SCH (14:00)
[2023-05-11] MEDS: traZODone 50 MG TAB PO SCH (20:13)
[2023-05-11] MEDS: ATORVASTATIN 10 MG TAB PO SCH (20:13)
[2023-05-11] MEDS: CitaloPRAM (CeleXA) 20 MG TAB PO SCH (20:14)
[2023-05-11] MEDS: CEFDINIR 300 MG CAP (OMNICEF) PO SCH (20:14)
[2023-05-12] VITALS (12 sets, daily range): BP systolic 135–182; BP diastolic 58–104; TEMP 97.6–98.9; O2SAT 90–96
[2023-05-12 05:23] LABS: HEMATOCRIT 36.4 % (42.0-52.0); HEMOGLOBIN 12.1 g/dl (13.5-17.5); MEAN CORPUSCULAR HEMOGLOBIN 30.6 pg (27.0-33.0); MEAN CORPUSCULAR HGB CONC 33.2 g/dl (32.0-36.5); MEAN CORPUSCULAR VOLUME 92.2 fl (80.0-96.0); PLATELET COUNT, AUTOMATED 290 10^3/uL (150-450); RED BLOOD COUNT 3.95 10^6/uL (4.30-6.10); WHITE BLOOD COUNT 11.4 10^3/uL (4.0-10.0)
[2023-05-12 05:59] LABS: BLOOD UREA NITROGEN 18 MG/DL (9-23); CALCIUM LEVEL 9.2 MG/DL (8.3-10.6); CARBON DIOXIDE LEVEL 20 MMOL/L (20-31); CHLORIDE LEVEL 109 MMOL/L (98-107); CREATININE FOR GFR 1.13 MG/DL (0.70-1.30); GLOMERULAR FILTRATION RATE > 60.0 (>35); GLUCOSE, FASTING 160 MG/DL (74-106); MAGNESIUM LEVEL 1.8 MG/DL (1.8-2.4); SODIUM LEVEL 142 MMOL/L (136-145)
[2023-05-12] MEDS: HEPARIN SOD (PORCINE) 5000UNITS/ML 1ML VIAL/SYRINGE SC SCH ×2 (06:00→13:35)
[2023-05-12] MEDS: **hydrALAZINE** 50 MG TAB PO SCH ×2 (06:15→13:35)
[2023-05-12] MEDS: SENNA 8.6 MG TAB (SENOKOT) PO SCH (09:00)
[2023-05-12] MEDS ORDERED: hydroCHLOROthiazide 12.5 MG CAPSULE PO SCH (09:00)
[2023-05-12] MEDS ORDERED: LOSARTAN 50MG TABLET PO SCH (09:00)
[2023-05-12] MEDS: DOCUSATE SODIUM 100MG CAPSULE PO SCH (09:00)
[2023-05-12] MEDS: SINEMET 25-100 MG TAB PO SCH ×2 (09:56→13:35)
[2023-05-12] MEDS: CEFDINIR 300 MG CAP (OMNICEF) PO SCH (09:56)
[2023-05-12] MEDS: MAGNESIUM OXIDE 400MG TAB (MAG-OX) PO SCH (09:56)
[2023-05-12] MEDS: RASAGILINE MESYLATE 1 MG PO SCH (09:57)
[2023-05-12] MEDS: AGGRENOX PO SCH (09:57)
[2023-05-12] MEDS: VITAMIN D 1,000 INTERNATIONAL UNITS TABLET PO SCH (09:57)
[2023-05-12] MEDS ORDERED: HYDR50TA PO ×2 (15:19→15:26)
[2023-05-12] MEDS ORDERED: CEFD300CAP PO ×2 (15:19→15:26)
[2023-05-12] MEDS ORDERED: AMLO1TAB25 PO (15:19)
[2023-05-12] MEDS ORDERED: LOSA-528 PO (15:19)
[2023-05-12] MEDS ORDERED: LOSA100T46 PO (15:26)
== END 2023-05-12 16:29 | DRG 71 ==
LOC: M ED 09:16 → EDBD 09:16 → M ED INP 17:05 → ENRESERV 20:03 → M MSPAV 21:29 → M ICU 05-10 22:11
PROVIDERS: ADMIT Internal Medicine Nephrology; ATTEND Internal Medicine
DX: G93.41 Metabolic encephalopathy (principal); N17.9 Acute kidney failure, unspecified; I16.9 Hypertensive crisis, unspecified; N39.0 Urinary tract infection, site not specified; G20 Parkinson's disease; F02.80 Dementia in other diseases classified elsewhere, unspecified severity, without behavioral disturbance, psychotic disturbance, mood disturbance, and anxiety; E55.9 Vitamin D deficiency, unspecified; N18.9 Chronic kidney disease, unspecified; I12.9 Hypertensive chronic kidney disease with stage 1 through stage 4 chronic kidney disease, or unspecified chronic kidney disease; E78.5 Hyperlipidemia, unspecified; M19.90 Unspecified osteoarthritis, unspecified site; R53.1 Weakness; Z66 Do not resuscitate; R33.9 Retention of urine, unspecified; I25.10 Atherosclerotic heart disease of native coronary artery without angina pectoris; G47.00 Insomnia, unspecified; F32.A Depression, unspecified; K57.90 Diverticulosis of intestine, part unspecified, without perforation or abscess without bleeding; Z87.891 Personal history of nicotine dependence; Z79.82 Long term (current) use of aspirin; Z79.899 Other long term (current) drug therapy

== ENCOUNTER 2023-05-12 14:05 | Inpatient (IN) | payer MEDICARE, OTHER ==
[~2023-05-12] VITALS: Ht 172.7 cm; Wt 90.5 kg
[~2023-05-12 14:05] MED LIST changes: +METOPROLOL SUCC *XL* 25MG TAB (TopROL *XL*) PO SCH
[2023-05-12] MEDS ORDERED: CEFD300CAP PO ×2 (15:19→15:26)
[2023-05-12] MEDS ORDERED: AMLO1TAB25 PO (15:19)
[2023-05-12] MEDS ORDERED: HYDR50TA PO ×2 (15:19→15:26)
[2023-05-12] MEDS ORDERED: LOSA-528 PO (15:19)
[2023-05-12] MEDS ORDERED: LOSA100T46 PO (15:26)
[2023-05-12 17:00] VITALS: BP 179/69; TEMP 97.4; O2SAT 96
[2023-05-12] MEDS: LACTOBACILLUS ACIDOPHILUS CAP (BACID) PO SCH (18:09)
[2023-05-12] MEDS: SINEMET 25-100 MG TAB PO SCH ×2 (18:10→21:45)
[2023-05-12] MEDS: **hydrALAZINE** 50 MG TAB PO SCH (18:21)
[2023-05-12 20:00] VITALS: BP 132/68; TEMP 97.5; O2SAT 96
[2023-05-12] MEDS: REMEDY PHYTOPLEX Z-GUARD PASTE 113GM TUBE (FROM STOREROOM PRODUCT) TOP SCH (21:00)
[2023-05-12] MEDS: DOCUSATE SODIUM 100MG CAPSULE PO SCH (21:00)
[2023-05-12] MEDS: MAGNESIUM OXIDE 400MG TAB (MAG-OX) PO SCH (21:44)
[2023-05-12] MEDS: CEFDINIR 300 MG CAP (OMNICEF) PO SCH (21:44)
[2023-05-12] MEDS: PANTOPRAZOLE 40MG TAB (PROTONIX) PO SCH (21:44)
[2023-05-12] MEDS: CitaloPRAM (CeleXA) 20 MG TAB PO SCH (21:44)
[2023-05-12] MEDS: SENNA 8.6 MG TAB (SENOKOT) PO SCH (21:44)
[2023-05-12] MEDS: ATORVASTATIN 10 MG TAB PO SCH (21:44)
[2023-05-12] MEDS: HEPARIN SOD (PORCINE) 5000UNITS/ML 1ML VIAL/SYRINGE SC SCH (21:44)
[2023-05-12] MEDS: AGGRENOX PO SCH (21:49)
[2023-05-12] MEDS: traZODone 50 MG TAB PO SCH (21:56)
[2023-05-13] MEDS: **hydrALAZINE** 50 MG TAB PO SCH ×6 (05:16→23:56)
[2023-05-13 06:00] VITALS: BP 154/76; TEMP 98; O2SAT 94
[2023-05-13 06:18] LABS: BASO # 0.1 10^3/uL (0.0-0.2); BASO % 0.8 % (0.0-1.0); EOS # 0.2 10^3/uL (0.0-0.5); EOS % 2.9 % (0.0-3.0); HEMATOCRIT 35.1 % (42.0-52.0); HEMOGLOBIN 11.6 g/dl (13.5-17.5); LYMPH # 1.2 10^3/uL (1.5-5.0); LYMPH % 18.3 % (24.0-44.0); MEAN CORPUSCULAR HEMOGLOBIN 30.5 pg (27.0-33.0); MEAN CORPUSCULAR VOLUME 92.4 fl (80.0-96.0); MONO # 0.8 10^3/uL (0.0-0.8); MONO % 12.8 % (2.0-8.0); NEUTROPHILS # 4.2 10^3/uL (1.5-8.5); NEUTROPHILS % 63.8 % (36.0-66.0); PLATELET COUNT, AUTOMATED 264 10^3/uL (150-450); WHITE BLOOD COUNT 6.5 10^3/uL (4.0-10.0)
[2023-05-13 06:42] LABS: ALBUMIN 3.1 G/DL (3.2-5.2); ALKALINE PHOSPHATASE 48 U/L (46-116); ALT/SGPT < 9 U/L (7.0-40); AST/SGOT 11 U/L (<34); BILIRUBIN,TOTAL 0.5 MG/DL (0.3-1.2); BLOOD UREA NITROGEN 22 MG/DL (9-23); CARBON DIOXIDE LEVEL 25 MMOL/L (20-31); CHLORIDE LEVEL 107 MMOL/L (98-107); CREATININE FOR GFR 1.32 MG/DL (0.70-1.30); GLOMERULAR FILTRATION RATE 54.5 (>35); GLUCOSE, FASTING 144 MG/DL (74-106); POTASSIUM SERUM 4.1 MMOL/L (3.5-5.1); SODIUM LEVEL 139 MMOL/L (136-145); TOTAL PROTEIN 5.8 G/DL (5.7-8.2)
[2023-05-13] MEDS ORDERED: LOSARTAN 50MG TABLET PO SCH (09:00)
[2023-05-13] MEDS: REMEDY PHYTOPLEX Z-GUARD PASTE 113GM TUBE (FROM STOREROOM PRODUCT) TOP SCH ×3 (09:00→20:58)
[2023-05-13] MEDS: DOCUSATE SODIUM 100MG CAPSULE PO SCH ×2 (09:00→20:55)
[2023-05-13] MEDS ORDERED: hydroCHLOROthiazide 12.5 MG CAPSULE PO SCH (09:00)
[2023-05-13] MEDS: HEPARIN SOD (PORCINE) 5000UNITS/ML 1ML VIAL/SYRINGE SC SCH ×2 (09:20→20:58)
[2023-05-13] MEDS: RASAGILINE 1 MG PO SCH (09:21)
[2023-05-13] MEDS: AGGRENOX PO SCH ×2 (09:21→20:57)
[2023-05-13] MEDS: LACTOBACILLUS ACIDOPHILUS CAP (BACID) PO SCH ×2 (09:21→17:33)
[2023-05-13] MEDS: MAGNESIUM OXIDE 400MG TAB (MAG-OX) PO SCH ×2 (09:21→20:55)
[2023-05-13] MEDS: METOPROLOL TART 12.5 MG PER 1/2 TAB PO SCH ×2 (09:21→20:55)
[2023-05-13] MEDS: VITAMIN D 1,000 INTERNATIONAL UNITS TABLET PO SCH (09:22)
[2023-05-13] MEDS: SINEMET 25-100 MG TAB PO SCH ×4 (09:22→20:54)
[2023-05-13] MEDS: PANTOPRAZOLE 40MG TAB (PROTONIX) PO SCH ×2 (09:22→20:54)
[2023-05-13] MEDS: CEFDINIR 300 MG CAP (OMNICEF) PO SCH ×2 (09:22→20:54)
[2023-05-13 12:16] VITALS: BP 130/58
[2023-05-13] MEDS ORDERED: NS 1,000 ML IV SCH (12:45)
[2023-05-13 14:00] VITALS: BP 145/62; TEMP 97; O2SAT 97
[2023-05-13 17:21] VITALS: BP 140/72
[2023-05-13 20:00] VITALS: BP 162/70; TEMP 96.6; O2SAT 95
[2023-05-13] MEDS: CitaloPRAM (CeleXA) 20 MG TAB PO SCH (20:54)
[2023-05-13] MEDS: ATORVASTATIN 10 MG TAB PO SCH (20:54)
[2023-05-13] MEDS: traZODone 50 MG TAB PO SCH (20:55)
[2023-05-13] MEDS: SENNA 8.6 MG TAB (SENOKOT) PO SCH (20:55)
[2023-05-14 05:57] VITALS: BP 152/58; TEMP 98.6; O2SAT 97
[2023-05-14] MEDS: **hydrALAZINE** 50 MG TAB PO SCH ×3 (06:49→17:49)
[2023-05-14] MEDS ORDERED: LOSARTAN 50MG TABLET PO SCH (09:00)
[2023-05-14] MEDS: REMEDY PHYTOPLEX Z-GUARD PASTE 113GM TUBE (FROM STOREROOM PRODUCT) TOP SCH ×3 (09:00→20:21)
[2023-05-14] MEDS: DOCUSATE SODIUM 100MG CAPSULE PO SCH ×4 (09:00→20:22)
[2023-05-14 09:30] LABS: CALCIUM LEVEL 9.1 MG/DL (8.3-10.6); CREATININE FOR GFR 1.47 MG/DL (0.70-1.30); GLOMERULAR FILTRATION RATE 48.1 (>35); POTASSIUM SERUM 4.3 MMOL/L (3.5-5.1)
[2023-05-14] MEDS: HEPARIN SOD (PORCINE) 5000UNITS/ML 1ML VIAL/SYRINGE SC SCH ×3 (09:35→21:00)
[2023-05-14] MEDS: LACTOBACILLUS ACIDOPHILUS CAP (BACID) PO SCH ×2 (09:35→17:37)
[2023-05-14] MEDS: CEFDINIR 300 MG CAP (OMNICEF) PO SCH ×3 (09:35→21:00)
[2023-05-14] MEDS: SINEMET 25-100 MG TAB PO SCH ×5 (09:35→21:00)
[2023-05-14] MEDS: MAGNESIUM OXIDE 400MG TAB (MAG-OX) PO SCH ×3 (09:35→21:00)
[2023-05-14] MEDS: PANTOPRAZOLE 40MG TAB (PROTONIX) PO SCH ×3 (09:35→21:00)
[2023-05-14] MEDS: VITAMIN D 1,000 INTERNATIONAL UNITS TABLET PO SCH (09:35)
[2023-05-14] MEDS: RASAGILINE 1 MG PO SCH (09:36)
[2023-05-14] MEDS: METOPROLOL TART 12.5 MG PER 1/2 TAB PO SCH ×3 (09:36→21:00)
[2023-05-14] MEDS: AGGRENOX PO SCH ×3 (09:37→21:00)
[2023-05-14] MEDS ORDERED: PILL CUTTER 1 EACH XX PRN (11:30)
[2023-05-14] MEDS: SALIVA SUBSTITUTE(MOUTHKOTE) BTL MT SCH ×4 (12:16→21:00)
[2023-05-14 14:00] VITALS: BP 154/70; TEMP 97; O2SAT 92
[2023-05-14 20:00] VITALS: BP 150/65; TEMP 97.6; O2SAT 95
[2023-05-14] MEDS: SENNA 8.6 MG TAB (SENOKOT) PO SCH ×2 (20:18→21:00)
[2023-05-14] MEDS: ATORVASTATIN 10 MG TAB PO SCH ×2 (20:19→21:00)
[2023-05-14] MEDS: traZODone 50 MG TAB PO SCH ×2 (20:19→21:00)
[2023-05-14] MEDS: CitaloPRAM (CeleXA) 20 MG TAB PO SCH ×2 (20:19→21:00)
[2023-05-15 00:11] VITALS: BP 178/60
[2023-05-15] MEDS: **hydrALAZINE** 50 MG TAB PO SCH ×4 (00:16→18:08)
[2023-05-15 06:27] VITALS: BP 154/58; TEMP 98.2; O2SAT 93
[2023-05-15 06:49] LABS: BASO % 0.3 % (0.0-1.0); EOS # 0.2 10^3/uL (0.0-0.5); EOS % 2.5 % (0.0-3.0); HEMATOCRIT 35.1 % (42.0-52.0); HEMOGLOBIN 11.5 g/dl (13.5-17.5); LYMPH # 1.1 10^3/uL (1.5-5.0); LYMPH % 16.3 % (24.0-44.0); MEAN CORPUSCULAR HEMOGLOBIN 30.3 pg (27.0-33.0); MEAN CORPUSCULAR HGB CONC 32.8 g/dl (32.0-36.5); MEAN CORPUSCULAR VOLUME 92.6 fl (80.0-96.0); MONO # 0.9 10^3/uL (0.0-0.8); MONO % 13.1 % (2.0-8.0); NEUTROPHILS # 4.5 10^3/uL (1.5-8.5); NEUTROPHILS % 65.2 % (36.0-66.0); PLATELET COUNT, AUTOMATED 253 10^3/uL (150-450); RED BLOOD COUNT 3.79 10^6/uL (4.30-6.10); WHITE BLOOD COUNT 6.9 10^3/uL (4.0-10.0)
[2023-05-15 07:08] LABS: CALCIUM LEVEL 8.8 MG/DL (8.3-10.6); CREATININE FOR GFR 1.32 MG/DL (0.70-1.30); GLOMERULAR FILTRATION RATE 54.5 (>35); POTASSIUM SERUM 4.5 MMOL/L (3.5-5.1)
[2023-05-15] MEDS: VITAMIN D 1,000 INTERNATIONAL UNITS TABLET PO SCH (07:33)
[2023-05-15] MEDS: SINEMET 25-100 MG TAB PO SCH ×4 (07:34→20:12)
[2023-05-15] MEDS: LACTOBACILLUS ACIDOPHILUS CAP (BACID) PO SCH ×2 (07:34→18:08)
[2023-05-15] MEDS: MAGNESIUM OXIDE 400MG TAB (MAG-OX) PO SCH ×2 (07:34→20:13)
[2023-05-15] MEDS: CEFDINIR 300 MG CAP (OMNICEF) PO SCH ×2 (07:34→20:13)
[2023-05-15] MEDS: SALIVA SUBSTITUTE(MOUTHKOTE) BTL MT SCH ×4 (07:35→20:16)
[2023-05-15] MEDS: METOPROLOL TART 12.5 MG PER 1/2 TAB PO SCH ×3 (07:35→20:13)
[2023-05-15] MEDS: AGGRENOX PO SCH ×2 (07:35→20:15)
[2023-05-15] MEDS: RASAGILINE 1 MG PO SCH (07:35)
[2023-05-15] MEDS: REMEDY PHYTOPLEX Z-GUARD PASTE 113GM TUBE (FROM STOREROOM PRODUCT) TOP SCH ×3 (07:36→20:13)
[2023-05-15] MEDS: PANTOPRAZOLE 40MG TAB (PROTONIX) PO SCH ×2 (07:36→20:14)
[2023-05-15] MEDS: DOCUSATE SODIUM 100MG CAPSULE PO SCH (07:36)
[2023-05-15] MEDS: HEPARIN SOD (PORCINE) 5000UNITS/ML 1ML VIAL/SYRINGE SC SCH ×2 (07:37→20:12)
[2023-05-15] MEDS: OMEPRAZOLE 20MG CAP PO SCH (09:00)
[2023-05-15 14:00] VITALS: BP 151/71; TEMP 97.3; O2SAT 93
[2023-05-15 20:00] VITALS: BP 140/50; TEMP 97.2; O2SAT 92
[2023-05-15] MEDS: traZODone 50 MG TAB PO SCH (20:12)
[2023-05-15] MEDS: CitaloPRAM (CeleXA) 20 MG TAB PO SCH (20:13)
[2023-05-15] MEDS: ATORVASTATIN 10 MG TAB PO SCH (20:13)
[2023-05-15] MEDS: SENNA 8.6 MG TAB (SENOKOT) PO SCH (20:13)
[2023-05-15] MEDS: ACETAMINOPHEN TAB 650MG DOSE (2X325MG) PO PRN (20:13)
[2023-05-16] MEDS: **hydrALAZINE** 50 MG TAB PO SCH ×4 (05:31→17:42)
[2023-05-16] MEDS: METOPROLOL TART 12.5 MG PER 1/2 TAB PO SCH ×3 (05:31→22:12)
[2023-05-16 06:00] VITALS: BP 160/70; TEMP 97.1; O2SAT 94
[2023-05-16] MEDS: VITAMIN D 1,000 INTERNATIONAL UNITS TABLET PO SCH (08:46)
[2023-05-16] MEDS: MAGNESIUM OXIDE 400MG TAB (MAG-OX) PO SCH ×2 (08:46→20:15)
[2023-05-16] MEDS: CEFDINIR 300 MG CAP (OMNICEF) PO SCH ×2 (08:46→20:15)
[2023-05-16] MEDS: HEPARIN SOD (PORCINE) 5000UNITS/ML 1ML VIAL/SYRINGE SC SCH ×2 (08:46→20:14)
[2023-05-16] MEDS: OMEPRAZOLE 20MG CAP PO SCH (08:46)
[2023-05-16] MEDS: LACTOBACILLUS ACIDOPHILUS CAP (BACID) PO SCH ×2 (08:46→17:41)
[2023-05-16] MEDS: PANTOPRAZOLE 40MG TAB (PROTONIX) PO SCH ×2 (08:47→20:14)
[2023-05-16] MEDS: SINEMET 25-100 MG TAB PO SCH ×4 (08:47→20:14)
[2023-05-16] MEDS: RASAGILINE 1 MG PO SCH (08:47)
[2023-05-16] MEDS: AGGRENOX PO SCH ×2 (08:47→20:36)
[2023-05-16] MEDS: SALIVA SUBSTITUTE(MOUTHKOTE) BTL MT SCH ×4 (08:48→20:16)
[2023-05-16] MEDS: REMEDY PHYTOPLEX Z-GUARD PASTE 113GM TUBE (FROM STOREROOM PRODUCT) TOP SCH ×3 (08:48→20:15)
[2023-05-16 14:00] VITALS: BP 130/56; TEMP 98; O2SAT 96
[2023-05-16 20:00] VITALS: BP 150/60; TEMP 96.4; O2SAT 96
[2023-05-16] MEDS: traZODone 50 MG TAB PO SCH (20:14)
[2023-05-16] MEDS: SENNA 8.6 MG TAB (SENOKOT) PO SCH (20:14)
[2023-05-16] MEDS: CitaloPRAM (CeleXA) 20 MG TAB PO SCH (20:15)
[2023-05-16] MEDS: ATORVASTATIN 10 MG TAB PO SCH (20:15)
[2023-05-17 06:00] VITALS: BP 158/70; TEMP 97.2; O2SAT 95
[2023-05-17] MEDS: METOPROLOL TART 12.5 MG PER 1/2 TAB PO SCH ×4 (06:07→21:01)
[2023-05-17] MEDS: **hydrALAZINE** 50 MG TAB PO SCH ×4 (06:07→17:40)
[2023-05-17] MEDS: HEPARIN SOD (PORCINE) 5000UNITS/ML 1ML VIAL/SYRINGE SC SCH ×2 (08:45→20:45)
[2023-05-17] MEDS: OMEPRAZOLE 20MG CAP PO SCH (08:45)
[2023-05-17] MEDS: RASAGILINE 1 MG PO SCH (08:45)
[2023-05-17] MEDS: AGGRENOX PO SCH ×2 (08:45→20:46)
[2023-05-17] MEDS: MAGNESIUM OXIDE 400MG TAB (MAG-OX) PO SCH ×2 (08:46→20:45)
[2023-05-17] MEDS: VITAMIN D 1,000 INTERNATIONAL UNITS TABLET PO SCH (08:46)
[2023-05-17] MEDS: REMEDY PHYTOPLEX Z-GUARD PASTE 113GM TUBE (FROM STOREROOM PRODUCT) TOP SCH ×3 (08:46→20:53)
[2023-05-17] MEDS: LACTOBACILLUS ACIDOPHILUS CAP (BACID) PO SCH ×2 (08:46→17:40)
[2023-05-17] MEDS: SINEMET 25-100 MG TAB PO SCH ×4 (08:46→20:45)
[2023-05-17] MEDS: PANTOPRAZOLE 40MG TAB (PROTONIX) PO SCH ×2 (08:46→20:46)
[2023-05-17] MEDS: SALIVA SUBSTITUTE(MOUTHKOTE) BTL MT SCH ×4 (08:46→20:46)
[2023-05-17 14:00] VITALS: BP 148/72; TEMP 97.8; O2SAT 93
[2023-05-17 20:00] VITALS: BP 147/72; TEMP 97.3; O2SAT 95
[2023-05-17] MEDS: SENNA 8.6 MG TAB (SENOKOT) PO SCH (20:45)
[2023-05-17] MEDS: CitaloPRAM (CeleXA) 20 MG TAB PO SCH (20:45)
[2023-05-17] MEDS: ATORVASTATIN 10 MG TAB PO SCH (20:45)
[2023-05-17] MEDS: traZODone 50 MG TAB PO SCH (20:46)
[2023-05-18 00:47] VITALS: BP 164/72
[2023-05-18] MEDS: **hydrALAZINE** 50 MG TAB PO SCH ×4 (00:48→17:36)
[2023-05-18 06:00] VITALS: BP 130/58; TEMP 98.1; O2SAT 95
[2023-05-18] MEDS: METOPROLOL TART 12.5 MG PER 1/2 TAB PO SCH ×3 (06:15→22:00)
[2023-05-18] MEDS: SINEMET 25-100 MG TAB PO SCH ×5 (08:18→21:00)
[2023-05-18] MEDS: HEPARIN SOD (PORCINE) 5000UNITS/ML 1ML VIAL/SYRINGE SC SCH ×3 (08:18→21:00)
[2023-05-18] MEDS: VITAMIN D 1,000 INTERNATIONAL UNITS TABLET PO SCH (08:18)
[2023-05-18] MEDS: SALIVA SUBSTITUTE(MOUTHKOTE) BTL MT SCH ×5 (08:19→21:00)
[2023-05-18] MEDS: PANTOPRAZOLE 40MG TAB (PROTONIX) PO SCH ×3 (08:19→21:00)
[2023-05-18] MEDS: AGGRENOX PO SCH ×3 (08:19→21:00)
[2023-05-18] MEDS: RASAGILINE 1 MG PO SCH (08:19)
[2023-05-18] MEDS: LACTOBACILLUS ACIDOPHILUS CAP (BACID) PO SCH ×2 (08:19→17:36)
[2023-05-18] MEDS: MAGNESIUM OXIDE 400MG TAB (MAG-OX) PO SCH ×3 (08:19→21:00)
[2023-05-18] MEDS: OMEPRAZOLE 20MG CAP PO SCH (08:19)
[2023-05-18] MEDS: REMEDY PHYTOPLEX Z-GUARD PASTE 113GM TUBE (FROM STOREROOM PRODUCT) TOP SCH ×3 (08:23→20:24)
[2023-05-18 14:04] VITALS: BP 146/46; TEMP 96.6; O2SAT 92
[2023-05-18 20:05] VITALS: BP 158/64; TEMP 97.4; O2SAT 96
[2023-05-18] MEDS: SENNA 8.6 MG TAB (SENOKOT) PO SCH ×2 (20:21→21:00)
[2023-05-18] MEDS: ATORVASTATIN 10 MG TAB PO SCH ×2 (20:22→21:00)
[2023-05-18] MEDS: traZODone 50 MG TAB PO SCH ×2 (20:22→21:00)
[2023-05-18] MEDS: CitaloPRAM (CeleXA) 20 MG TAB PO SCH ×2 (20:22→21:00)
[2023-05-19] MEDS: **hydrALAZINE** 50 MG TAB PO SCH ×6 (00:03→17:08)
[2023-05-19 06:20] VITALS: BP 164/58; TEMP 98.1; O2SAT 94
[2023-05-19] MEDS: METOPROLOL TART 12.5 MG PER 1/2 TAB PO SCH ×3 (06:25→20:15)
[2023-05-19 07:20] LABS: ALBUMIN 3.2 G/DL (3.2-5.2); CALCIUM LEVEL 8.9 MG/DL (8.3-10.6); CREATININE FOR GFR 1.5 MG/DL (0.70-1.30); PHOSPHORUS LEVEL 3.5 MG/DL (2.4-5.1); POTASSIUM SERUM 4.5 MMOL/L (3.5-5.1)
[2023-05-19] MEDS: MAGNESIUM OXIDE 400MG TAB (MAG-OX) PO SCH ×2 (08:16→20:15)
[2023-05-19] MEDS: OMEPRAZOLE 20MG CAP PO SCH (08:17)
[2023-05-19] MEDS: PANTOPRAZOLE 40MG TAB (PROTONIX) PO SCH ×2 (08:17→20:15)
[2023-05-19] MEDS: SINEMET 25-100 MG TAB PO SCH ×4 (08:17→20:15)
[2023-05-19] MEDS: HEPARIN SOD (PORCINE) 5000UNITS/ML 1ML VIAL/SYRINGE SC SCH ×2 (08:17→20:17)
[2023-05-19] MEDS: SALIVA SUBSTITUTE(MOUTHKOTE) BTL MT SCH ×4 (08:19→20:16)
[2023-05-19] MEDS: LACTOBACILLUS ACIDOPHILUS CAP (BACID) PO SCH ×2 (08:19→17:07)
[2023-05-19] MEDS: VITAMIN D 1,000 INTERNATIONAL UNITS TABLET PO SCH (08:19)
[2023-05-19] MEDS: AGGRENOX PO SCH ×2 (08:20→20:16)
[2023-05-19] MEDS: REMEDY PHYTOPLEX Z-GUARD PASTE 113GM TUBE (FROM STOREROOM PRODUCT) TOP SCH ×3 (08:20→20:17)
[2023-05-19] MEDS: RASAGILINE 1 MG PO SCH (08:20)
[2023-05-19 13:43] VITALS: BP 160/69; TEMP 97.6; O2SAT 92
[2023-05-19 20:09] VITALS: BP 164/62; TEMP 97.7; O2SAT 94
[2023-05-19] MEDS: ATORVASTATIN 10 MG TAB PO SCH (20:14)
[2023-05-19] MEDS: CitaloPRAM (CeleXA) 20 MG TAB PO SCH (20:15)
[2023-05-19] MEDS: ACETAMINOPHEN TAB 650MG DOSE (2X325MG) PO PRN (20:15)
[2023-05-19] MEDS: SENNA 8.6 MG TAB (SENOKOT) PO SCH (20:15)
[2023-05-19] MEDS: traZODone 50 MG TAB PO SCH (20:15)
[2023-05-20] MEDS: **hydrALAZINE** 50 MG TAB PO SCH ×4 (05:38→17:20)
[2023-05-20] MEDS: METOPROLOL TART 12.5 MG PER 1/2 TAB PO SCH ×3 (05:38→21:16)
[2023-05-20 06:00] VITALS: BP 145/62; TEMP 98.1; O2SAT 96
[2023-05-20] MEDS: SINEMET 25-100 MG TAB PO SCH ×4 (08:51→20:11)
[2023-05-20] MEDS: MAGNESIUM OXIDE 400MG TAB (MAG-OX) PO SCH ×2 (08:51→20:11)
[2023-05-20] MEDS: VITAMIN D 1,000 INTERNATIONAL UNITS TABLET PO SCH (08:51)
[2023-05-20] MEDS: REMEDY PHYTOPLEX Z-GUARD PASTE 113GM TUBE (FROM STOREROOM PRODUCT) TOP SCH ×3 (08:52→20:12)
[2023-05-20] MEDS: OMEPRAZOLE 20MG CAP PO SCH (08:52)
[2023-05-20] MEDS: HEPARIN SOD (PORCINE) 5000UNITS/ML 1ML VIAL/SYRINGE SC SCH ×2 (08:52→20:10)
[2023-05-20] MEDS: LACTOBACILLUS ACIDOPHILUS CAP (BACID) PO SCH ×2 (08:53→17:20)
[2023-05-20] MEDS: SALIVA SUBSTITUTE(MOUTHKOTE) BTL MT SCH ×4 (08:54→20:12)
[2023-05-20] MEDS: AGGRENOX PO SCH ×2 (08:55→20:12)
[2023-05-20] MEDS: RASAGILINE 1 MG PO SCH (08:56)
[2023-05-20] MEDS: PANTOPRAZOLE 40MG TAB (PROTONIX) PO SCH ×2 (09:03→20:11)
[2023-05-20 20:00] VITALS: BP 146/67; TEMP 96.7; O2SAT 94
[2023-05-20] MEDS: traZODone 50 MG TAB PO SCH (20:10)
[2023-05-20] MEDS: SENNA 8.6 MG TAB (SENOKOT) PO SCH (20:11)
[2023-05-20] MEDS: ATORVASTATIN 10 MG TAB PO SCH (20:11)
[2023-05-20] MEDS: CitaloPRAM (CeleXA) 20 MG TAB PO SCH (20:11)
[2023-05-20] MEDS: ACETAMINOPHEN TAB 650MG DOSE (2X325MG) PO PRN (20:11)
[2023-05-21] MEDS: METOPROLOL TART 12.5 MG PER 1/2 TAB PO SCH ×3 (05:42→22:00)
[2023-05-21] MEDS: **hydrALAZINE** 50 MG TAB PO SCH ×4 (05:43→17:59)
[2023-05-21 06:00] VITALS: BP 158/72; TEMP 97; O2SAT 95
[2023-05-21 07:31] LABS: CREATININE FOR GFR 1.53 MG/DL (0.70-1.30); POTASSIUM SERUM 4.4 MMOL/L (3.5-5.1)
[2023-05-21] MEDS: LACTOBACILLUS ACIDOPHILUS CAP (BACID) PO SCH ×2 (08:25→17:59)
[2023-05-21] MEDS: HEPARIN SOD (PORCINE) 5000UNITS/ML 1ML VIAL/SYRINGE SC SCH ×2 (08:25→21:00)
[2023-05-21] MEDS: OMEPRAZOLE 20MG CAP PO SCH (08:25)
[2023-05-21] MEDS: VITAMIN D 1,000 INTERNATIONAL UNITS TABLET PO SCH (08:25)
[2023-05-21] MEDS: MAGNESIUM OXIDE 400MG TAB (MAG-OX) PO SCH ×2 (08:26→20:07)
[2023-05-21] MEDS: PANTOPRAZOLE 40MG TAB (PROTONIX) PO SCH (08:26)
[2023-05-21] MEDS: SINEMET 25-100 MG TAB PO SCH ×4 (08:26→20:07)
[2023-05-21] MEDS: SALIVA SUBSTITUTE(MOUTHKOTE) BTL MT SCH ×4 (08:27→20:06)
[2023-05-21] MEDS: RASAGILINE 1 MG PO SCH (08:27)
[2023-05-21] MEDS: AGGRENOX PO SCH ×2 (08:27→20:06)
[2023-05-21] MEDS: REMEDY PHYTOPLEX Z-GUARD PASTE 113GM TUBE (FROM STOREROOM PRODUCT) TOP SCH ×3 (08:27→21:00)
[2023-05-21] MEDS: MIRALAX *UNIT DOSE* 17GM PACKET PO SCH (12:07)
[2023-05-21 14:00] VITALS: BP 130/52; TEMP 97.2; O2SAT 97
[2023-05-21] MEDS ORDERED: METO1TAB87 PO (16:04)
[2023-05-21] MEDS ORDERED: MIRA1POW3 PO (16:04)
[2023-05-21] MEDS ORDERED: HYDR50TA PO (16:04)
[2023-05-21] MEDS ORDERED: MAGN400T2 PO (16:04)
[2023-05-21 17:45] VITALS: BP 158/52; TEMP 98; O2SAT 95
[2023-05-21 20:00] VITALS: BP 142/66; TEMP 96.6; O2SAT 95
[2023-05-21] MEDS: ACETAMINOPHEN TAB 650MG DOSE (2X325MG) PO PRN (20:07)
[2023-05-21] MEDS: traZODone 50 MG TAB PO SCH (20:07)
[2023-05-21] MEDS: ATORVASTATIN 10 MG TAB PO SCH (20:07)
[2023-05-21] MEDS: CitaloPRAM (CeleXA) 20 MG TAB PO SCH (20:07)
[2023-05-21] MEDS: SENNA 8.6 MG TAB (SENOKOT) PO SCH (20:08)
[2023-05-22] MEDS: METOPROLOL TART 12.5 MG PER 1/2 TAB PO SCH ×3 (05:50→21:07)
[2023-05-22] MEDS: **hydrALAZINE** 50 MG TAB PO SCH ×5 (05:51→23:40)
[2023-05-22 06:00] VITALS: BP 156/68; TEMP 97.6; O2SAT 94
[2023-05-22 07:24] LABS: ALBUMIN 3.2 G/DL (3.2-5.2); CALCIUM LEVEL 9.2 MG/DL (8.3-10.6); CREATININE FOR GFR 1.67 MG/DL (0.70-1.30); GLOMERULAR FILTRATION RATE 41.5 (>35); PHOSPHORUS LEVEL 4.1 MG/DL (2.4-5.1); POTASSIUM SERUM 4.6 MMOL/L (3.5-5.1)
[2023-05-22] MEDS: SINEMET 25-100 MG TAB PO SCH ×4 (08:55→19:56)
[2023-05-22] MEDS: LACTOBACILLUS ACIDOPHILUS CAP (BACID) PO SCH ×2 (08:55→17:38)
[2023-05-22] MEDS: MIRALAX *UNIT DOSE* 17GM PACKET PO SCH (08:55)
[2023-05-22] MEDS: RASAGILINE 1 MG PO SCH (08:55)
[2023-05-22] MEDS: VITAMIN D 1,000 INTERNATIONAL UNITS TABLET PO SCH (08:55)
[2023-05-22] MEDS: MAGNESIUM OXIDE 400MG TAB (MAG-OX) PO SCH ×2 (08:55→19:56)
[2023-05-22] MEDS: AGGRENOX PO SCH ×2 (08:55→19:57)
[2023-05-22] MEDS: SALIVA SUBSTITUTE(MOUTHKOTE) BTL MT SCH ×4 (08:56→19:57)
[2023-05-22] MEDS: REMEDY PHYTOPLEX Z-GUARD PASTE 113GM TUBE (FROM STOREROOM PRODUCT) TOP SCH ×3 (09:01→19:57)
[2023-05-22] MEDS: HEPARIN SOD (PORCINE) 5000UNITS/ML 1ML VIAL/SYRINGE SC SCH ×2 (09:01→19:58)
[2023-05-22] MEDS ORDERED: NS 1,000 ML IV SCH (11:15)
[2023-05-22 14:00] VITALS: BP 146/50; TEMP 96.6; O2SAT 95
[2023-05-22 17:49] LABS: CREATININE,RANDOM URINE 102.1 MG/DL
[2023-05-22] MEDS: ATORVASTATIN 10 MG TAB PO SCH (19:56)
[2023-05-22] MEDS: traZODone 50 MG TAB PO SCH (19:56)
[2023-05-22] MEDS: SENNA 8.6 MG TAB (SENOKOT) PO SCH (19:56)
[2023-05-22] MEDS: CitaloPRAM (CeleXA) 20 MG TAB PO SCH (19:56)
[2023-05-22] MEDS: ACETAMINOPHEN TAB 650MG DOSE (2X325MG) PO PRN (20:02)
[2023-05-22 21:00] VITALS: BP 102/60; TEMP 97.9; O2SAT 96
[2023-05-23 05:44] VITALS: BP 118/64; TEMP 98.2; O2SAT 95
[2023-05-23] MEDS: **hydrALAZINE** 50 MG TAB PO SCH ×4 (05:44→23:06)
[2023-05-23] MEDS: METOPROLOL TART 12.5 MG PER 1/2 TAB PO SCH ×3 (05:46→20:15)
[2023-05-23 07:37] LABS: ALBUMIN 3.2 G/DL (3.2-5.2); CREATININE FOR GFR 1.36 MG/DL (0.70-1.30); GLOMERULAR FILTRATION RATE 52.6 (>35); MAGNESIUM LEVEL 2.1 MG/DL (1.8-2.4); PHOSPHORUS LEVEL 3.6 MG/DL (2.4-5.1); POTASSIUM SERUM 4.4 MMOL/L (3.5-5.1)
[2023-05-23] MEDS: REMEDY PHYTOPLEX Z-GUARD PASTE 113GM TUBE (FROM STOREROOM PRODUCT) TOP SCH ×3 (09:00→20:15)
[2023-05-23] MEDS: LACTOBACILLUS ACIDOPHILUS CAP (BACID) PO SCH ×2 (09:51→17:29)
[2023-05-23] MEDS: SALIVA SUBSTITUTE(MOUTHKOTE) BTL MT SCH ×4 (09:52→20:16)
[2023-05-23] MEDS: MAGNESIUM OXIDE 400MG TAB (MAG-OX) PO SCH ×2 (09:52→20:15)
[2023-05-23] MEDS: VITAMIN D 1,000 INTERNATIONAL UNITS TABLET PO SCH (09:53)
[2023-05-23] MEDS: RASAGILINE 1 MG PO SCH (09:53)
[2023-05-23] MEDS: SINEMET 25-100 MG TAB PO SCH ×4 (09:53→20:14)
[2023-05-23] MEDS: HEPARIN SOD (PORCINE) 5000UNITS/ML 1ML VIAL/SYRINGE SC SCH ×2 (09:54→20:15)
[2023-05-23] MEDS: AGGRENOX PO SCH ×2 (09:56→20:15)
[2023-05-23] MEDS: MIRALAX *UNIT DOSE* 17GM PACKET PO SCH (09:57)
[2023-05-23 12:22] VITALS: BP 125/62
[2023-05-23 14:00] VITALS: BP 140/60; TEMP 97.8; O2SAT 98
[2023-05-23 20:00] VITALS: BP 140/60; TEMP 98.2; O2SAT 96
[2023-05-23] MEDS: ATORVASTATIN 10 MG TAB PO SCH (20:14)
[2023-05-23] MEDS: ACETAMINOPHEN TAB 650MG DOSE (2X325MG) PO PRN (20:14)
[2023-05-23] MEDS: SENNA 8.6 MG TAB (SENOKOT) PO SCH (20:14)
[2023-05-23] MEDS: CitaloPRAM (CeleXA) 20 MG TAB PO SCH (20:14)
[2023-05-23] MEDS: traZODone 50 MG TAB PO SCH (20:14)
[2023-05-24 06:00] VITALS: BP 134/62; TEMP 98.3; O2SAT 96
[2023-05-24] MEDS: METOPROLOL TART 12.5 MG PER 1/2 TAB PO SCH ×4 (06:00→20:50)
[2023-05-24] MEDS: **hydrALAZINE** 50 MG TAB PO SCH ×3 (06:12→17:44)
[2023-05-24] MEDS: REMEDY PHYTOPLEX Z-GUARD PASTE 113GM TUBE (FROM STOREROOM PRODUCT) TOP SCH ×3 (09:00→20:52)
[2023-05-24] MEDS: MIRALAX *UNIT DOSE* 17GM PACKET PO SCH (09:00)
[2023-05-24] MEDS: LACTOBACILLUS ACIDOPHILUS CAP (BACID) PO SCH ×2 (09:33→17:44)
[2023-05-24] MEDS: SALIVA SUBSTITUTE(MOUTHKOTE) BTL MT SCH ×4 (09:33→20:50)
[2023-05-24] MEDS: MAGNESIUM OXIDE 400MG TAB (MAG-OX) PO SCH ×2 (09:33→20:51)
[2023-05-24] MEDS: HEPARIN SOD (PORCINE) 5000UNITS/ML 1ML VIAL/SYRINGE SC SCH ×2 (09:34→20:51)
[2023-05-24] MEDS: VITAMIN D 1,000 INTERNATIONAL UNITS TABLET PO SCH (09:34)
[2023-05-24] MEDS: SINEMET 25-100 MG TAB PO SCH ×4 (09:34→20:51)
[2023-05-24] MEDS: AGGRENOX PO SCH ×2 (09:35→20:52)
[2023-05-24] MEDS: RASAGILINE 1 MG PO SCH (09:35)
[2023-05-24 14:00] VITALS: BP 140/53; TEMP 97.2; O2SAT 95
[2023-05-24 17:42] VITALS: BP 133/53; TEMP 97.1; O2SAT 96
[2023-05-24 20:02] VITALS: BP 148/62; TEMP 97.9; O2SAT 95
[2023-05-24] MEDS: CitaloPRAM (CeleXA) 20 MG TAB PO SCH (20:50)
[2023-05-24] MEDS: traZODone 50 MG TAB PO SCH (20:50)
[2023-05-24] MEDS: SENNA 8.6 MG TAB (SENOKOT) PO SCH (20:50)
[2023-05-24] MEDS: ATORVASTATIN 10 MG TAB PO SCH (20:50)
[2023-05-24] MEDS: ACETAMINOPHEN TAB 650MG DOSE (2X325MG) PO PRN (20:51)
[2023-05-25] MEDS: METOPROLOL TART 12.5 MG PER 1/2 TAB PO SCH ×2 (05:43→14:00)
[2023-05-25] MEDS: **hydrALAZINE** 50 MG TAB PO SCH ×3 (05:44→12:45)
[2023-05-25 06:00] VITALS: BP 152/64; TEMP 98.2; O2SAT 94
[2023-05-25 06:43] LABS: HEMATOCRIT 32.5 % (42.0-52.0); HEMOGLOBIN 10.4 g/dl (13.5-17.5); MEAN CORPUSCULAR HEMOGLOBIN 29.7 pg (27.0-33.0); MEAN CORPUSCULAR VOLUME 92.9 fl (80.0-96.0); PLATELET COUNT, AUTOMATED 272 10^3/uL (150-450); WHITE BLOOD COUNT 6.3 10^3/uL (4.0-10.0)
[2023-05-25 07:03] LABS: CREATININE FOR GFR 1.33 MG/DL (0.70-1.30); POTASSIUM SERUM 4.6 MMOL/L (3.5-5.1)
[2023-05-25] MEDS: SINEMET 25-100 MG TAB PO SCH ×2 (08:47→12:45)
[2023-05-25] MEDS: LACTOBACILLUS ACIDOPHILUS CAP (BACID) PO SCH (08:47)
[2023-05-25] MEDS: VITAMIN D 1,000 INTERNATIONAL UNITS TABLET PO SCH (08:47)
[2023-05-25] MEDS: HEPARIN SOD (PORCINE) 5000UNITS/ML 1ML VIAL/SYRINGE SC SCH (08:48)
[2023-05-25] MEDS: MAGNESIUM OXIDE 400MG TAB (MAG-OX) PO SCH (08:48)
[2023-05-25] MEDS: MIRALAX *UNIT DOSE* 17GM PACKET PO SCH (08:48)
[2023-05-25] MEDS: RASAGILINE 1 MG PO SCH (08:48)
[2023-05-25] MEDS: AGGRENOX PO SCH (08:48)
[2023-05-25] MEDS: REMEDY PHYTOPLEX Z-GUARD PASTE 113GM TUBE (FROM STOREROOM PRODUCT) TOP SCH (08:49)
[2023-05-25] MEDS: SALIVA SUBSTITUTE(MOUTHKOTE) BTL MT SCH ×2 (08:49→12:45)
[2023-05-25 14:00] VITALS: BP 140/62
[2023-05-25 14:30] VITALS: BP 140/62; TEMP 97.6; O2SAT 94
== END 2023-05-25 15:40 | disposition home health service (06) | DRG 71 ==
LOC: M PM&R 16:36
PROVIDERS: ADMIT Physical Medicine & Rehabilitation; ATTEND Student in an Organized Health Care Education/Training Program
DX: G93.41 Metabolic encephalopathy (principal); N17.9 Acute kidney failure, unspecified; N39.0 Urinary tract infection, site not specified; G20 Parkinson's disease; F02.80 Dementia in other diseases classified elsewhere, unspecified severity, without behavioral disturbance, psychotic disturbance, mood disturbance, and anxiety; R26.89 Other abnormalities of gait and mobility; I12.9 Hypertensive chronic kidney disease with stage 1 through stage 4 chronic kidney disease, or unspecified chronic kidney disease; E78.5 Hyperlipidemia, unspecified; R53.1 Weakness; G47.33 Obstructive sleep apnea (adult) (pediatric); Z66 Do not resuscitate; Z74.09 Other reduced mobility; Z74.1 Need for assistance with personal care; N18.9 Chronic kidney disease, unspecified; F32.A Depression, unspecified; R13.10 Dysphagia, unspecified; G47.00 Insomnia, unspecified; E55.9 Vitamin D deficiency, unspecified; K57.90 Diverticulosis of intestine, part unspecified, without perforation or abscess without bleeding; K59.00 Constipation, unspecified; D64.9 Anemia, unspecified; R53.81 Other malaise; Z79.899 Other long term (current) drug therapy

== ENCOUNTER 2023-06-05 12:09 | Observation (INO) | payer MEDICARE, OTHER ==
[~2023-06-05] VITALS: Ht 177.8 cm; Wt 89.2 kg
[~2023-06-05 12:09] MED LIST changes: +AMLO1TAB25 PO; +CEFD300CAP PO; +HYDR50TA PO; +LOSA-528 PO; +LOSA100T46 PO; +MAGN400T2 PO; +METO1TAB87 PO; -METOPROLOL SUCC *XL* 25MG TAB (TopROL *XL*) PO SCH; +MIRA1POW3 PO
[2023-06-05 13:56] LABS: BASO % 0.4 % (0.0-1.0); EOS # 0.1 10^3/uL (0.0-0.5); EOS % 1.1 % (0.0-3.0); HEMATOCRIT 30.7 % (42.0-52.0); HEMOGLOBIN 9.7 g/dl (13.5-17.5); LYMPH # 1.4 10^3/uL (1.5-5.0); LYMPH % 17.3 % (24.0-44.0); MEAN CORPUSCULAR HEMOGLOBIN 29.9 pg (27.0-33.0); MEAN CORPUSCULAR HGB CONC 31.6 g/dl (32.0-36.5); MEAN CORPUSCULAR VOLUME 94.8 fl (80.0-96.0); MONO % 11.8 % (2.0-8.0); NEUTROPHILS # 5.7 10^3/uL (1.5-8.5); NEUTROPHILS % 68.6 % (36.0-66.0); PLATELET COUNT, AUTOMATED 285 10^3/uL (150-450); RED BLOOD COUNT 3.24 10^6/uL (4.30-6.10); WHITE BLOOD COUNT 8.3 10^3/uL (4.0-10.0)
[2023-06-05 14:26] LABS: CK-MB VALUE MASS 1.6 NG/ML (<3.6)
[2023-06-05 14:30] LABS: THYROID STIMULATING HORMONE 1.003 uIU/ML (0.55-4.78)
[2023-06-05 14:31] LABS: ALBUMIN 3.2 G/DL (3.2-5.2); ALKALINE PHOSPHATASE 60 U/L (46-116); ALT/SGPT < 9 U/L (7.0-40); AST/SGOT 11 U/L (<34); BILIRUBIN,DIRECT 0.1 MG/DL (<0.4); BILIRUBIN,TOTAL 0.3 MG/DL (0.3-1.2); BLOOD UREA NITROGEN 29 MG/DL (9-23); CALCIUM LEVEL 9.4 MG/DL (8.3-10.6); CARBON DIOXIDE LEVEL 24 MMOL/L (20-31); CHLORIDE LEVEL 107 MMOL/L (98-107); CREATININE FOR GFR 1.24 MG/DL (0.70-1.30); GLOMERULAR FILTRATION RATE 58.6 (>35); GLUCOSE, FASTING 206 MG/DL (74-106); POTASSIUM SERUM 4.7 MMOL/L (3.5-5.1); SODIUM LEVEL 138 MMOL/L (136-145); TOTAL PROTEIN 5.9 G/DL (5.7-8.2)
[2023-06-05 14:34] LABS: RSV AMPLIFICATION NEGATIVE (NEGATIVE)
[2023-06-05 14:36] LABS: CPK CREATINE PHOSPHOKINASE 166 U/L (46-171); MB/CK RELATIVE INDEX 0.96 (< OR =4)
[2023-06-05] MEDS: NS 1,000 ML IV SCH (16:04)
[2023-06-05] MEDS ORDERED: MED REC IN PROGRESS XX SCH (16:10)
[2023-06-05] MEDS ORDERED: CITA40TA6 PO (16:29)
[2023-06-05] MEDS ORDERED: AMLO1TAB25 PO (16:31)
[2023-06-05] MEDS ORDERED: HYDR-3911 PO (16:34)
[2023-06-05] MEDS ORDERED: MAGN400T2 PO (16:36)
[2023-06-05] MEDS ORDERED: METO1TAB87 PO (16:38)
[2023-06-05] MEDS ORDERED: HOME MED LIST COMPLETE! XX SCH (16:40)
[2023-06-05] MEDS ORDERED: MOM 30ML SUSPENSION UDC PO PRN (17:40)
[2023-06-05 18:08] LABS: VENOUS BASE EXCESS -0.6 (-2.0-2.0); VENOUS HCO3 23.2 MMOL/L (23.0-27.0); VENOUS O2 SATURATION 97.9 % (60.0-80.0); VENOUS PARTIAL PRESSURE CO2 35.2 mmHg (38.0-50.0); VENOUS PARTIAL PRESSURE O2 109.9 mmHg (30.0-50.0); VENOUS PH 7.437 UNITS (7.330-7.430); VENOUS TOTAL CO2 24.3 MMOL/L (24.0-28.0)
[2023-06-05] MEDS: **hydrALAZINE** 50 MG TAB PO SCH ×2 (18:23→22:34)
[2023-06-05] MEDS: CitaloPRAM (CeleXA) 20 MG TAB PO SCH (18:23)
[2023-06-05] MEDS ORDERED: DOCUSATE SODIUM 100MG CAPSULE PO SCH (21:00)
[2023-06-05 21:15] VITALS: BP 152/56; TEMP 98.8; O2SAT 94
[2023-06-05] MEDS: SINEMET 25-100 MG TAB PO SCH ×2 (21:35→22:34)
[2023-06-05] MEDS: QUEtiapine FUMARATE 50MG TAB PO SCH (22:33)
[2023-06-05] MEDS: ATORVASTATIN 10 MG TAB PO SCH (22:34)
[2023-06-05] MEDS: METOPROLOL TART 25 MG TABLET PO SCH (22:34)
[2023-06-05] MEDS: traZODone 50 MG TAB PO SCH (22:34)
[2023-06-05] MEDS: MAGNESIUM OXIDE 400MG TAB (MAG-OX) PO SCH (22:35)
[2023-06-05 23:30] VITALS: O2SAT 84
[2023-06-05 23:35] VITALS: O2SAT 95
[2023-06-06] MEDS: NS 1,000 ML IV SCH ×3 (00:45→22:22)
[2023-06-06] MEDS: DOCUSATE SOD LIQ 100MG/10ML UDC PO SCH ×3 (01:00→22:23)
[2023-06-06 05:00] VITALS: BP 158/60; TEMP 98.1; O2SAT 92
[2023-06-06] MEDS: METOPROLOL TART 25 MG TABLET PO SCH ×3 (05:48→22:33)
[2023-06-06 06:24] LABS: HEMATOCRIT 29.9 % (42.0-52.0); HEMOGLOBIN 9.5 g/dl (13.5-17.5); MEAN CORPUSCULAR HEMOGLOBIN 30.1 pg (27.0-33.0); MEAN CORPUSCULAR HGB CONC 31.8 g/dl (32.0-36.5); MEAN CORPUSCULAR VOLUME 94.6 fl (80.0-96.0); PLATELET COUNT, AUTOMATED 275 10^3/uL (150-450); RED BLOOD COUNT 3.16 10^6/uL (4.30-6.10); WHITE BLOOD COUNT 6.4 10^3/uL (4.0-10.0)
[2023-06-06 06:55] LABS: CREATININE FOR GFR 1.25 MG/DL (0.70-1.30); POTASSIUM SERUM 4.8 MMOL/L (3.5-5.1)
[2023-06-06] MEDS: SINEMET 25-100 MG TAB PO SCH ×4 (09:42→22:25)
[2023-06-06] MEDS: ENOXAPARIN 40MG/0.4ML SYRINGE (J1650 PER 10MG) SC SCH (09:42)
[2023-06-06] MEDS: VITAMIN D 1,000 INTERNATIONAL UNITS TABLET PO SCH (09:43)
[2023-06-06] MEDS: MAGNESIUM OXIDE 400MG TAB (MAG-OX) PO SCH ×2 (09:43→22:24)
[2023-06-06] MEDS: CitaloPRAM (CeleXA) 20 MG TAB PO SCH (09:44)
[2023-06-06] MEDS: **hydrALAZINE** 50 MG TAB PO SCH ×3 (09:46→22:32)
[2023-06-06 10:00] VITALS: BP 165/57; TEMP 98.8; O2SAT 90
[2023-06-06] MEDS: AGGRENOX PO SCH ×2 (13:27→22:29)
[2023-06-06 14:00] VITALS: BP 153/45; TEMP 97.9; O2SAT 92
[2023-06-06 15:07] LABS: PERCENT SATURATION 19.1 % (19.7-50.0)
[2023-06-06 15:09] LABS: FERRITIN 97.1 NG/ML (10.5-307.3); FOLATE 15.6 NG/ML (>5.4)
[2023-06-06 15:33] LABS: TOTAL PROTEIN,RANDOM URINE 87.3 MG/DL (0.0-14.0)
[2023-06-06 15:38] LABS: CREATININE, URINE 152.2 MG/DL; CREATININE,RANDOM URINE 152.2 MG/DL; MAU/CREAT RATIO 239.8 MCG/MG (0.0-30.0)
[2023-06-06 20:00] VITALS: BP 149/72; TEMP 97.9; O2SAT 92
[2023-06-06 22:15] VITALS: O2SAT 88
[2023-06-06 22:16] VITALS: O2SAT 96
[2023-06-06] MEDS: traZODone 50 MG TAB PO SCH (22:23)
[2023-06-06] MEDS: ATORVASTATIN 10 MG TAB PO SCH (22:24)
[2023-06-06] MEDS: QUEtiapine FUMARATE 50MG TAB PO SCH (22:24)
[2023-06-06] MEDS: ACETAMINOPHEN TAB 650MG DOSE (2X325MG) PO PRN (22:27)
[2023-06-07] VITALS (7 sets, daily range): BP systolic 163–171; BP diastolic 63–70; TEMP 98.1; O2SAT 88–93
[2023-06-07] MEDS: MICONAZOLE 2 % POWDER (DESENEX) TOP SCH ×3 (02:04→20:36)
[2023-06-07] MEDS: METOPROLOL TART 25 MG TABLET PO SCH ×3 (05:28→21:11)
[2023-06-07] MEDS: DOCUSATE SOD LIQ 100MG/10ML UDC PO SCH ×2 (08:34→20:35)
[2023-06-07] MEDS: AGGRENOX PO SCH ×2 (08:34→20:35)
[2023-06-07] MEDS: VITAMIN D 1,000 INTERNATIONAL UNITS TABLET PO SCH (08:35)
[2023-06-07] MEDS: SINEMET 25-100 MG TAB PO SCH ×4 (08:35→20:35)
[2023-06-07] MEDS: ENOXAPARIN 40MG/0.4ML SYRINGE (J1650 PER 10MG) SC SCH (08:36)
[2023-06-07] MEDS: CitaloPRAM (CeleXA) 20 MG TAB PO SCH (08:36)
[2023-06-07] MEDS: **hydrALAZINE** 50 MG TAB PO SCH ×3 (08:36→20:34)
[2023-06-07] MEDS: MAGNESIUM OXIDE 400MG TAB (MAG-OX) PO SCH ×2 (08:36→20:35)
[2023-06-07] MEDS: CHLORTHALIDONE 25 MG TAB PO SCH (14:04)
[2023-06-07] MEDS: QUEtiapine FUMARATE 50MG TAB PO SCH (20:35)
[2023-06-07] MEDS: ATORVASTATIN 10 MG TAB PO SCH (20:35)
[2023-06-07] MEDS: traZODone 50 MG TAB PO SCH (20:35)
[2023-06-07] MEDS: ACETAMINOPHEN TAB 650MG DOSE (2X325MG) PO PRN (20:36)
[2023-06-08 05:55] VITALS: BP 160/75; TEMP 98.1; O2SAT 91
[2023-06-08 06:00] VITALS: O2SAT 94
[2023-06-08] MEDS: METOPROLOL TART 25 MG TABLET PO SCH ×3 (06:00→21:46)
[2023-06-08] MEDS: DOCUSATE SOD LIQ 100MG/10ML UDC PO SCH ×2 (09:04→20:30)
[2023-06-08] MEDS: **hydrALAZINE** 50 MG TAB PO SCH ×3 (09:05→20:32)
[2023-06-08] MEDS: MAGNESIUM OXIDE 400MG TAB (MAG-OX) PO SCH ×2 (09:05→20:32)
[2023-06-08] MEDS: VITAMIN D 1,000 INTERNATIONAL UNITS TABLET PO SCH (09:05)
[2023-06-08] MEDS: CitaloPRAM (CeleXA) 20 MG TAB PO SCH (09:05)
[2023-06-08] MEDS: ENOXAPARIN 40MG/0.4ML SYRINGE (J1650 PER 10MG) SC SCH (09:06)
[2023-06-08] MEDS: MICONAZOLE 2 % POWDER (DESENEX) TOP SCH ×2 (09:06→20:33)
[2023-06-08] MEDS: SINEMET 25-100 MG TAB PO SCH ×4 (09:06→20:31)
[2023-06-08] MEDS: CHLORTHALIDONE 25 MG TAB PO SCH (09:06)
[2023-06-08] MEDS: AGGRENOX PO SCH ×2 (10:11→20:31)
[2023-06-08] MEDS: QUEtiapine FUMARATE 50MG TAB PO SCH (20:31)
[2023-06-08] MEDS: ATORVASTATIN 10 MG TAB PO SCH (20:31)
[2023-06-08] MEDS: traZODone 50 MG TAB PO SCH (20:32)
[2023-06-08 20:39] VITALS: BP 147/56; TEMP 98.1; O2SAT 94
[2023-06-09] VITALS (9 sets, daily range): BP systolic 138–150; BP diastolic 52–62; TEMP 98.2; O2SAT 85–93
[2023-06-09] MEDS: METOPROLOL TART 25 MG TABLET PO SCH ×3 (05:58→22:14)
[2023-06-09] MEDS: **hydrALAZINE** 50 MG TAB PO SCH ×3 (08:04→20:10)
[2023-06-09] MEDS: CitaloPRAM (CeleXA) 20 MG TAB PO SCH (08:05)
[2023-06-09] MEDS: CHLORTHALIDONE 25 MG TAB PO SCH (08:05)
[2023-06-09] MEDS: MAGNESIUM OXIDE 400MG TAB (MAG-OX) PO SCH ×2 (08:05→20:09)
[2023-06-09] MEDS: VITAMIN D 1,000 INTERNATIONAL UNITS TABLET PO SCH (08:05)
[2023-06-09] MEDS: DOCUSATE SOD LIQ 100MG/10ML UDC PO SCH ×2 (08:05→20:10)
[2023-06-09] MEDS: SINEMET 25-100 MG TAB PO SCH ×4 (08:05→20:10)
[2023-06-09] MEDS: ENOXAPARIN 40MG/0.4ML SYRINGE (J1650 PER 10MG) SC SCH (08:06)
[2023-06-09] MEDS: AGGRENOX PO SCH ×2 (08:06→20:10)
[2023-06-09] MEDS: MICONAZOLE 2 % POWDER (DESENEX) TOP SCH ×2 (08:07→20:13)
[2023-06-09] MEDS: traZODone 50 MG TAB PO SCH (20:09)
[2023-06-09] MEDS: ATORVASTATIN 10 MG TAB PO SCH (20:09)
[2023-06-09] MEDS: QUEtiapine FUMARATE 50MG TAB PO SCH (20:10)
[2023-06-10 05:30] VITALS: BP 162/54; TEMP 98.1; O2SAT 90
[2023-06-10] MEDS: METOPROLOL TART 25 MG TABLET PO SCH ×3 (05:31→22:00)
[2023-06-10] MEDS: ENOXAPARIN 40MG/0.4ML SYRINGE (J1650 PER 10MG) SC SCH (08:24)
[2023-06-10] MEDS: AGGRENOX PO SCH ×2 (08:25→22:08)
[2023-06-10] MEDS: SINEMET 25-100 MG TAB PO SCH ×4 (08:25→22:07)
[2023-06-10] MEDS: CitaloPRAM (CeleXA) 20 MG TAB PO SCH (08:25)
[2023-06-10] MEDS: MAGNESIUM OXIDE 400MG TAB (MAG-OX) PO SCH ×2 (08:26→22:08)
[2023-06-10] MEDS: **hydrALAZINE** 50 MG TAB PO SCH ×3 (08:26→22:11)
[2023-06-10] MEDS: CHLORTHALIDONE 25 MG TAB PO SCH (08:26)
[2023-06-10] MEDS: VITAMIN D 1,000 INTERNATIONAL UNITS TABLET PO SCH (08:26)
[2023-06-10] MEDS: DOCUSATE SOD LIQ 100MG/10ML UDC PO SCH ×2 (08:30→22:07)
[2023-06-10] MEDS: MICONAZOLE 2 % POWDER (DESENEX) TOP SCH ×2 (08:30→22:12)
[2023-06-10 14:00] VITALS: O2SAT 92
[2023-06-10 16:44] VITALS: O2SAT 92
[2023-06-10] MEDS: ATORVASTATIN 10 MG TAB PO SCH (22:07)
[2023-06-10] MEDS: QUEtiapine FUMARATE 50MG TAB PO SCH (22:07)
[2023-06-10] MEDS: traZODone 50 MG TAB PO SCH (22:08)
[2023-06-11 01:15] VITALS: O2SAT 93
[2023-06-11 02:57] VITALS: O2SAT 90
[2023-06-11 05:25] VITALS: BP 158/70; TEMP 97.7; O2SAT 90
[2023-06-11] MEDS: METOPROLOL TART 25 MG TABLET PO SCH ×3 (05:36→21:57)
[2023-06-11 07:30] VITALS: BP 180/80; TEMP 97.9; O2SAT 96
[2023-06-11 08:30] VITALS: BP 176/74
[2023-06-11] MEDS: DOCUSATE SOD LIQ 100MG/10ML UDC PO SCH ×3 (09:06→20:26)
[2023-06-11] MEDS: ENOXAPARIN 40MG/0.4ML SYRINGE (J1650 PER 10MG) SC SCH (09:06)
[2023-06-11] MEDS: CHLORTHALIDONE 25 MG TAB PO SCH (09:07)
[2023-06-11] MEDS: AGGRENOX PO SCH ×2 (09:08→20:13)
[2023-06-11] MEDS: **hydrALAZINE** 50 MG TAB PO SCH ×3 (09:08→20:13)
[2023-06-11] MEDS: CitaloPRAM (CeleXA) 20 MG TAB PO SCH (09:09)
[2023-06-11] MEDS: SINEMET 25-100 MG TAB PO SCH ×4 (09:09→20:12)
[2023-06-11] MEDS: VITAMIN D 1,000 INTERNATIONAL UNITS TABLET PO SCH (09:09)
[2023-06-11] MEDS: MAGNESIUM OXIDE 400MG TAB (MAG-OX) PO SCH ×2 (09:10→20:13)
[2023-06-11] MEDS: MICONAZOLE 2 % POWDER (DESENEX) TOP SCH ×2 (09:11→20:13)
[2023-06-11 13:30] VITALS: BP 143/51; TEMP 97.3; O2SAT 93
[2023-06-11] MEDS: ATORVASTATIN 10 MG TAB PO SCH (20:12)
[2023-06-11] MEDS: QUEtiapine FUMARATE 50MG TAB PO SCH (20:12)
[2023-06-11] MEDS: traZODone 50 MG TAB PO SCH (20:13)
[2023-06-12 04:20] VITALS: O2SAT 96
[2023-06-12] MEDS: METOPROLOL TART 25 MG TABLET PO SCH ×3 (04:53→21:34)
[2023-06-12 05:31] VITALS: BP 148/56; TEMP 97.9; O2SAT 96
[2023-06-12] MEDS: ENOXAPARIN 40MG/0.4ML SYRINGE (J1650 PER 10MG) SC SCH (09:41)
[2023-06-12] MEDS: AGGRENOX PO SCH ×2 (09:42→21:35)
[2023-06-12] MEDS: DOCUSATE SOD LIQ 100MG/10ML UDC PO SCH ×2 (09:42→21:35)
[2023-06-12] MEDS: MAGNESIUM OXIDE 400MG TAB (MAG-OX) PO SCH ×2 (09:43→21:34)
[2023-06-12] MEDS: **hydrALAZINE** 50 MG TAB PO SCH ×3 (09:43→21:32)
[2023-06-12] MEDS: ACETAMINOPHEN TAB 650MG DOSE (2X325MG) PO PRN (09:43)
[2023-06-12] MEDS: CitaloPRAM (CeleXA) 20 MG TAB PO SCH (09:43)
[2023-06-12] MEDS: MICONAZOLE 2 % POWDER (DESENEX) TOP SCH ×2 (09:44→21:35)
[2023-06-12] MEDS: SINEMET 25-100 MG TAB PO SCH ×4 (09:44→21:33)
[2023-06-12] MEDS: VITAMIN D 1,000 INTERNATIONAL UNITS TABLET PO SCH (09:44)
[2023-06-12] MEDS: CHLORTHALIDONE 25 MG TAB PO SCH (10:08)
[2023-06-12 14:00] VITALS: BP 128/70; TEMP 98.1; O2SAT 94
[2023-06-12] MEDS: ATORVASTATIN 10 MG TAB PO SCH (21:27)
[2023-06-12] MEDS: traZODone 50 MG TAB PO SCH (21:33)
[2023-06-12] MEDS: QUEtiapine FUMARATE 50MG TAB PO SCH (21:34)
[2023-06-13 05:49] VITALS: BP 107/57; TEMP 97.9; O2SAT 91
[2023-06-13] MEDS: METOPROLOL TART 25 MG TABLET PO SCH ×3 (06:00→20:09)
[2023-06-13] MEDS: VITAMIN D 1,000 INTERNATIONAL UNITS TABLET PO SCH (09:10)
[2023-06-13] MEDS: DOCUSATE SOD LIQ 100MG/10ML UDC PO SCH ×2 (09:10→20:03)
[2023-06-13] MEDS: CHLORTHALIDONE 25 MG TAB PO SCH (09:10)
[2023-06-13] MEDS: SINEMET 25-100 MG TAB PO SCH ×4 (09:10→20:02)
[2023-06-13] MEDS: AGGRENOX PO SCH ×3 (09:12→20:58)
[2023-06-13] MEDS: **hydrALAZINE** 50 MG TAB PO SCH ×3 (09:13→20:03)
[2023-06-13] MEDS: CitaloPRAM (CeleXA) 20 MG TAB PO SCH (09:13)
[2023-06-13] MEDS: MICONAZOLE 2 % POWDER (DESENEX) TOP SCH ×2 (09:14→20:04)
[2023-06-13] MEDS: ENOXAPARIN 40MG/0.4ML SYRINGE (J1650 PER 10MG) SC SCH (09:14)
[2023-06-13] MEDS: MAGNESIUM OXIDE 400MG TAB (MAG-OX) PO SCH ×2 (09:14→19:56)
[2023-06-13 16:00] VITALS: BP 149/50; TEMP 97.2; O2SAT 92
[2023-06-13] MEDS: ATORVASTATIN 10 MG TAB PO SCH (20:02)
[2023-06-13] MEDS: QUEtiapine FUMARATE 50MG TAB PO SCH (20:02)
[2023-06-13] MEDS: traZODone 50 MG TAB PO SCH (20:03)
[2023-06-14 06:26] VITALS: BP 150/70; TEMP 98.1; O2SAT 95
[2023-06-14] MEDS: METOPROLOL TART 25 MG TABLET PO SCH ×3 (06:27→20:28)
[2023-06-14] MEDS: DOCUSATE SOD LIQ 100MG/10ML UDC PO SCH ×2 (09:06→20:27)
[2023-06-14] MEDS: SINEMET 25-100 MG TAB PO SCH ×4 (09:06→20:28)
[2023-06-14] MEDS: MAGNESIUM OXIDE 400MG TAB (MAG-OX) PO SCH ×2 (09:06→20:28)
[2023-06-14] MEDS: CHLORTHALIDONE 25 MG TAB PO SCH (09:07)
[2023-06-14] MEDS: VITAMIN D 1,000 INTERNATIONAL UNITS TABLET PO SCH (09:07)
[2023-06-14] MEDS: MICONAZOLE 2 % POWDER (DESENEX) TOP SCH ×2 (09:08→20:29)
[2023-06-14] MEDS: **hydrALAZINE** 50 MG TAB PO SCH ×3 (09:08→20:28)
[2023-06-14] MEDS: CitaloPRAM (CeleXA) 20 MG TAB PO SCH (09:08)
[2023-06-14] MEDS: AGGRENOX PO SCH ×2 (09:08→20:29)
[2023-06-14] MEDS: ENOXAPARIN 40MG/0.4ML SYRINGE (J1650 PER 10MG) SC SCH (09:09)
[2023-06-14] MEDS: traZODone 50 MG TAB PO SCH (20:27)
[2023-06-14] MEDS: ATORVASTATIN 10 MG TAB PO SCH (20:27)
[2023-06-14] MEDS: QUEtiapine FUMARATE 50MG TAB PO SCH (20:28)
[2023-06-15 05:17] VITALS: BP 178/76; TEMP 98.2; O2SAT 93
[2023-06-15] MEDS: METOPROLOL TART 25 MG TABLET PO SCH ×3 (05:29→21:37)
[2023-06-15] MEDS: **hydrALAZINE** 50 MG TAB PO SCH ×5 (08:38→20:54)
[2023-06-15] MEDS: MAGNESIUM OXIDE 400MG TAB (MAG-OX) PO SCH ×3 (08:38→20:53)
[2023-06-15] MEDS: CitaloPRAM (CeleXA) 20 MG TAB PO SCH (08:38)
[2023-06-15] MEDS: CHLORTHALIDONE 25 MG TAB PO SCH (08:38)
[2023-06-15] MEDS: DOCUSATE SOD LIQ 100MG/10ML UDC PO SCH ×3 (08:38→20:48)
[2023-06-15] MEDS: ENOXAPARIN 40MG/0.4ML SYRINGE (J1650 PER 10MG) SC SCH (08:39)
[2023-06-15] MEDS: SINEMET 25-100 MG TAB PO SCH ×6 (08:39→20:54)
[2023-06-15] MEDS: MICONAZOLE 2 % POWDER (DESENEX) TOP SCH ×2 (08:39→19:53)
[2023-06-15] MEDS: VITAMIN D 1,000 INTERNATIONAL UNITS TABLET PO SCH (08:39)
[2023-06-15] MEDS: AGGRENOX PO SCH ×3 (08:40→20:53)
[2023-06-15] MEDS: QUEtiapine FUMARATE 50MG TAB PO SCH ×2 (19:51→20:54)
[2023-06-15] MEDS: traZODone 50 MG TAB PO SCH ×2 (19:52→20:48)
[2023-06-15] MEDS: ATORVASTATIN 10 MG TAB PO SCH ×2 (19:52→20:53)
[2023-06-15 20:30] VITALS: BP 144/59
[2023-06-16 06:00] VITALS: BP_SYST 146; BP_SYST 159; BP_DIAS 69; BP_DIAS 70; TEMP 98.2; O2SAT 94
[2023-06-16] MEDS: METOPROLOL TART 25 MG TABLET PO SCH ×4 (06:01→21:25)
[2023-06-16 07:45] VITALS: BP 145/56; TEMP 98.1; O2SAT 94
[2023-06-16] MEDS: DOCUSATE SOD LIQ 100MG/10ML UDC PO SCH ×3 (09:00→20:36)
[2023-06-16] MEDS: AGGRENOX PO SCH ×2 (09:08→20:35)
[2023-06-16] MEDS: VITAMIN D 1,000 INTERNATIONAL UNITS TABLET PO SCH (09:09)
[2023-06-16] MEDS: CHLORTHALIDONE 25 MG TAB PO SCH (09:09)
[2023-06-16] MEDS: MAGNESIUM OXIDE 400MG TAB (MAG-OX) PO SCH ×2 (09:09→20:36)
[2023-06-16] MEDS: **hydrALAZINE** 50 MG TAB PO SCH ×3 (09:10→20:36)
[2023-06-16] MEDS: ENOXAPARIN 40MG/0.4ML SYRINGE (J1650 PER 10MG) SC SCH (09:11)
[2023-06-16] MEDS: CitaloPRAM (CeleXA) 20 MG TAB PO SCH (09:11)
[2023-06-16] MEDS: SINEMET 25-100 MG TAB PO SCH ×4 (09:11→20:36)
[2023-06-16] MEDS: MICONAZOLE 2 % POWDER (DESENEX) TOP SCH ×2 (09:12→20:37)
[2023-06-16 16:15] VITALS: BP 117/45
[2023-06-16 20:00] VITALS: BP_SYST 141; BP_SYST 151; BP_DIAS 74
[2023-06-16] MEDS: QUEtiapine FUMARATE 50MG TAB PO SCH (20:35)
[2023-06-16] MEDS: traZODone 50 MG TAB PO SCH (20:35)
[2023-06-16] MEDS: ATORVASTATIN 10 MG TAB PO SCH (20:36)
[2023-06-17] MEDS: METOPROLOL TART 25 MG TABLET PO SCH ×2 (05:47→20:04)
[2023-06-17 06:00] VITALS: BP 142/51; TEMP 98.8; O2SAT 90
[2023-06-17] MEDS: CHLORTHALIDONE 25 MG TAB PO SCH ×2 (09:00→09:40)
[2023-06-17] MEDS: **hydrALAZINE** 50 MG TAB PO SCH (09:00)
[2023-06-17] MEDS: VITAMIN D 1,000 INTERNATIONAL UNITS TABLET PO SCH (09:19)
[2023-06-17] MEDS: SINEMET 25-100 MG TAB PO SCH ×4 (09:20→20:05)
[2023-06-17] MEDS: MAGNESIUM OXIDE 400MG TAB (MAG-OX) PO SCH ×2 (09:20→20:05)
[2023-06-17] MEDS: DOCUSATE SOD LIQ 100MG/10ML UDC PO SCH ×2 (09:21→20:11)
[2023-06-17] MEDS: ENOXAPARIN 40MG/0.4ML SYRINGE (J1650 PER 10MG) SC SCH (09:21)
[2023-06-17] MEDS: CitaloPRAM (CeleXA) 20 MG TAB PO SCH (09:21)
[2023-06-17] MEDS: AGGRENOX PO SCH ×2 (09:24→20:05)
[2023-06-17] MEDS: MICONAZOLE 2 % POWDER (DESENEX) TOP SCH ×2 (09:43→20:13)
[2023-06-17 13:39] LABS: BASO % 0.5 % (0.0-1.0); EOS # 0.2 10^3/uL (0.0-0.5); EOS % 2.9 % (0.0-3.0); HEMATOCRIT 33.9 % (42.0-52.0); HEMOGLOBIN 11.1 g/dl (13.5-17.5); LYMPH # 1.2 10^3/uL (1.5-5.0); LYMPH % 20.8 % (24.0-44.0); MEAN CORPUSCULAR HEMOGLOBIN 30.6 pg (27.0-33.0); MEAN CORPUSCULAR HGB CONC 32.7 g/dl (32.0-36.5); MEAN CORPUSCULAR VOLUME 93.4 fl (80.0-96.0); MONO # 0.6 10^3/uL (0.0-0.8); MONO % 10.9 % (2.0-8.0); NEUTROPHILS # 3.7 10^3/uL (1.5-8.5); NEUTROPHILS % 63.5 % (36.0-66.0); PLATELET COUNT, AUTOMATED 368 10^3/uL (150-450); RED BLOOD COUNT 3.63 10^6/uL (4.30-6.10); WHITE BLOOD COUNT 5.9 10^3/uL (4.0-10.0)
[2023-06-17 14:11] LABS: CALCIUM LEVEL 9.3 MG/DL (8.3-10.6); CREATININE FOR GFR 1.53 MG/DL (0.70-1.30); MAGNESIUM LEVEL 2.4 MG/DL (1.8-2.4); POTASSIUM SERUM 4.8 MMOL/L (3.5-5.1)
[2023-06-17 15:26] VITALS: BP 132/49
[2023-06-17] MEDS: QUEtiapine FUMARATE 50MG TAB PO SCH (20:04)
[2023-06-17] MEDS: ATORVASTATIN 10 MG TAB PO SCH (20:05)
[2023-06-17] MEDS: traZODone 50 MG TAB PO SCH (20:05)
[2023-06-18 05:35] VITALS: BP 142/68; TEMP 98.1; O2SAT 94
[2023-06-18] MEDS ORDERED: amLODIPine 5 MG TAB PO SCH (09:00)
[2023-06-18] MEDS: AGGRENOX PO SCH (09:33)
[2023-06-18] MEDS: DOCUSATE SOD LIQ 100MG/10ML UDC PO SCH (09:34)
[2023-06-18] MEDS: VITAMIN D 1,000 INTERNATIONAL UNITS TABLET PO SCH (09:34)
[2023-06-18] MEDS: ENOXAPARIN 40MG/0.4ML SYRINGE (J1650 PER 10MG) SC SCH (09:34)
[2023-06-18] MEDS: CitaloPRAM (CeleXA) 20 MG TAB PO SCH (09:35)
[2023-06-18] MEDS: MAGNESIUM OXIDE 400MG TAB (MAG-OX) PO SCH (09:35)
[2023-06-18] MEDS: SINEMET 25-100 MG TAB PO SCH ×2 (09:35→12:41)
[2023-06-18 09:37] VITALS: BP 150/64
[2023-06-18] MEDS: METOPROLOL TART 25 MG TABLET PO SCH (09:37)
[2023-06-18] MEDS: MICONAZOLE 2 % POWDER (DESENEX) TOP SCH (09:38)
[2023-06-18] MEDS ORDERED: QUET50TA4 PO (11:09)
[2023-06-18] MEDS ORDERED: AMLO1TAB24 PO (11:09)
[2023-06-18] MEDS ORDERED: METO1TAB87 PO (11:09)
== END 2023-06-18 14:01 ==
LOC: M ED 12:09 → M ED INP 17:36 → INTOOBSV 17:36 → ENRESERV 19:39 → M MSPAV 20:56
PROVIDERS: ADMIT Student in an Organized Health Care Education/Training Program; ATTEND Internal Medicine Nephrology
DX: G30.9 Alzheimer's disease, unspecified (principal); F02.811 Dementia in other diseases classified elsewhere, unspecified severity, with agitation; E87.20 Acidosis, unspecified; N17.9 Acute kidney failure, unspecified; R41.82 Altered mental status, unspecified; Z91.81 History of falling; R54 Age-related physical debility; D50.9 Iron deficiency anemia, unspecified; I25.10 Atherosclerotic heart disease of native coronary artery without angina pectoris; N18.30 Chronic kidney disease, stage 3 unspecified; I10 Essential (primary) hypertension; G47.33 Obstructive sleep apnea (adult) (pediatric); R13.10 Dysphagia, unspecified; G47.00 Insomnia, unspecified; F32.A Depression, unspecified; E78.5 Hyperlipidemia, unspecified; K57.90 Diverticulosis of intestine, part unspecified, without perforation or abscess without bleeding; E83.42 Hypomagnesemia; Z79.899 Other long term (current) drug therapy; Z79.82 Long term (current) use of aspirin; Z87.891 Personal history of nicotine dependence; Z74.1 Need for assistance with personal care
CPT/HCPCS: 36415; 70450; 71045; 72125; 80048; 80076; 81001; 82043; 82140; 82550; 82553; 82570; 82607; 82728; 82746; 82803; 83550; 83605; 83735; 84156; 84443; 84484; 85025; 85027; 87040; 87631; 87635; 93005; 93041; 94760; 96360; 96361; 96372; 97110; 97161; 97165; 97530; 97535; 99285; G0378; J1650

== ENCOUNTER → 2023-06-22 | Outpatient (REF) | payer MEDICARE, OTHER ==
[~2023-06-22] MED LIST changes: +AMLO1TAB24 PO; +CITA40TA6 PO; +HYDR-3911 PO; +QUET50TA4 PO
[2023-06-22 09:52] LABS: HEMATOCRIT 34.6 % (42.0-52.0); HEMOGLOBIN 11.5 g/dl (13.5-17.5); MEAN CORPUSCULAR HEMOGLOBIN 30.7 pg (27.0-33.0); MEAN CORPUSCULAR HGB CONC 33.2 g/dl (32.0-36.5); MEAN CORPUSCULAR VOLUME 92.5 fl (80.0-96.0); PLATELET COUNT, AUTOMATED 329 10^3/uL (150-450); RED BLOOD COUNT 3.74 10^6/uL (4.30-6.10); WHITE BLOOD COUNT 8.4 10^3/uL (4.0-10.0)
[2023-06-22 10:23] LABS: ALBUMIN 3.6 G/DL (3.2-5.2); BILIRUBIN,TOTAL 0.4 MG/DL (0.3-1.2); CALCIUM LEVEL 9.7 MG/DL (8.3-10.6); CHOLESTEROL RISK RATIO 3.85 (<5); CREATININE FOR GFR 1.96 MG/DL (0.70-1.30); GLOMERULAR FILTRATION RATE 34.5 (>35); HDL CHOLESTEROL 41.2 MG/DL (>40); LDL CHOLESTEROL 93.2 MG/DL (<100); MAGNESIUM LEVEL 2.1 MG/DL (1.8-2.4); NON-HDL-C 117.8 MG/DL; POTASSIUM SERUM 4.8 MMOL/L (3.5-5.1); TOTAL PROTEIN 6.7 G/DL (5.7-8.2)
[2023-06-22 10:25] LABS: FERRITIN 97.5 NG/ML (10.5-307.3)
== END ==
LOC: SKLAB5 08:02
PROVIDERS: ATTEND Internal Medicine
DX: E78.5 Hyperlipidemia, unspecified (principal); G20.C Parkinsonism, unspecified; I10 Essential (primary) hypertension

== ENCOUNTER → 2023-10-12 | Outpatient (REF) | payer MEDICARE, OTHER ==
[~2023-10-12] MED LIST changes: -HYDR-3911 PO; -HYDR50TA PO; +HYDR50TA46 PO; +HYDR50TA47 PO
[2023-10-12 11:34] LABS: HEMOGLOBIN A1c 7.8 % (4.0-6.0)
[2023-10-12 11:42] LABS: BLOOD UREA NITROGEN 21 MG/DL (9-23); CALCIUM LEVEL 9.1 MG/DL (8.3-10.6); CARBON DIOXIDE LEVEL 26 MMOL/L (20-31); CHLORIDE LEVEL 106 MMOL/L (98-107); CREATININE FOR GFR 1.16 MG/DL (0.70-1.30); GLOMERULAR FILTRATION RATE > 60.0 (>35); GLUCOSE, FASTING 169 MG/DL (74-106); POTASSIUM SERUM 4.5 MMOL/L (3.5-5.1); SODIUM LEVEL 139 MMOL/L (136-145)
[2023-10-12 11:43] LABS: TOTAL 25(OH) VITAMIN D 37.6 NG/ML (20.0-100.0); VITAMIN B12 LEVEL 709 PG/ML (211-911)
== END ==
LOC: SKLAB8 07:11
PROVIDERS: ATTEND Internal Medicine
DX: N18.9 Chronic kidney disease, unspecified (principal); R73.01 Impaired fasting glucose; Z79.899 Other long term (current) drug therapy

== ENCOUNTER → 2024-02-05 | Outpatient (REF) | payer MEDICARE, OTHER ==
[~2024-02-05] MED LIST changes: -MIRA1POW3 PO; +MIRA33506 PO
[2024-02-05 11:40] LABS: HEMATOCRIT 37.9 % (42.0-52.0); HEMOGLOBIN 12.4 g/dl (13.5-17.5); MEAN CORPUSCULAR HEMOGLOBIN 30.1 pg (27.0-33.0); MEAN CORPUSCULAR HGB CONC 32.7 g/dl (32.0-36.5); PLATELET COUNT, AUTOMATED 282 10^3/uL (150-450); RED BLOOD COUNT 4.12 10^6/uL (4.30-6.10); WHITE BLOOD COUNT 7.4 10^3/uL (4.0-10.0)
[2024-02-05 12:08] LABS: ALBUMIN 3.8 G/DL (3.2-5.2); BILIRUBIN,TOTAL 0.8 MG/DL (0.3-1.2); CALCIUM LEVEL 9.5 MG/DL (8.3-10.6); CREATININE FOR GFR 1.51 MG/DL (0.70-1.30); GLOMERULAR FILTRATION RATE 46.6 (>35); POTASSIUM SERUM 4.7 MMOL/L (3.5-5.1); TOTAL PROTEIN 6.6 G/DL (5.7-8.2)
== END ==
LOC: SKLAB8 07:00
PROVIDERS: ATTEND Internal Medicine
DX: N18.30 Chronic kidney disease, stage 3 unspecified (principal); Z79.899 Other long term (current) drug therapy

== ENCOUNTER → 2024-03-23 | Outpatient (REF) | payer MEDICARE, OTHER ==
[2024-03-23 07:18] LABS: HEMOGLOBIN A1c 7.2 % (4.0-6.0)
== END ==
LOC: SKLAB8 07:00
PROVIDERS: ATTEND Internal Medicine
DX: E11.9 Type 2 diabetes mellitus without complications (principal)

== ENCOUNTER → 2024-04-29 | Outpatient (REF) | payer MEDICARE, OTHER ==
[2024-04-29 21:33] LABS: BASO % 0.3 % (0.0-1.0); EOS # 0.3 10^3/uL (0.0-0.5); EOS % 4.2 % (0.0-3.0); HEMATOCRIT 37.6 % (42.0-52.0); HEMOGLOBIN 12.4 g/dl (13.5-17.5); LYMPH # 2.1 10^3/uL (1.5-5.0); LYMPH % 30.4 % (24.0-44.0); MEAN CORPUSCULAR HEMOGLOBIN 30.3 pg (27.0-33.0); MEAN CORPUSCULAR VOLUME 91.9 fl (80.0-96.0); MONO # 0.8 10^3/uL (0.0-0.8); MONO % 11.3 % (2.0-8.0); NEUTROPHILS # 3.6 10^3/uL (1.5-8.5); NEUTROPHILS % 53.1 % (36.0-66.0); PLATELET COUNT, AUTOMATED 272 10^3/uL (150-450); RED BLOOD COUNT 4.09 10^6/uL (4.30-6.10); WHITE BLOOD COUNT 6.8 10^3/uL (4.0-10.0)
[2024-04-29 21:56] LABS: ALBUMIN 3.6 G/DL (3.2-5.2); ALKALINE PHOSPHATASE 75 U/L (46-116); ALT/SGPT < 9 U/L (7.0-40); AST/SGOT < 8 U/L (<34); BILIRUBIN,TOTAL 0.3 MG/DL (0.3-1.2); BLOOD UREA NITROGEN 35 MG/DL (9-23); CALCIUM LEVEL 9.5 MG/DL (8.3-10.6); CARBON DIOXIDE LEVEL 27 MMOL/L (20-31); CHLORIDE LEVEL 108 MMOL/L (98-107); CREATININE FOR GFR 1.24 MG/DL (0.70-1.30); GLOMERULAR FILTRATION RATE 58.4 (>35); GLUCOSE, FASTING 233 MG/DL (74-106); POTASSIUM SERUM 4.9 MMOL/L (3.5-5.1); SODIUM LEVEL 140 MMOL/L (136-145); TOTAL PROTEIN 6.6 G/DL (5.7-8.2)
[2024-04-29 21:58] LABS: THYROID STIMULATING HORMONE 0.966 uIU/ML (0.55-4.78)
== END ==
LOC: SKLAB8 14:47
PROVIDERS: ATTEND Internal Medicine
DX: R41.82 Altered mental status, unspecified (principal)

== ENCOUNTER → 2024-06-02 | Outpatient (REF) | payer MEDICARE, OTHER ==
[2024-06-02 10:18] LABS: HEMOGLOBIN A1c 8.3 % (4.0-6.0)
[2024-06-02 10:33] LABS: ALBUMIN 3.4 G/DL (3.2-5.2); ALKALINE PHOSPHATASE 72 U/L (46-116); ALT/SGPT < 9 U/L (7.0-40); AST/SGOT < 8 U/L (<34); BILIRUBIN,TOTAL 0.6 MG/DL (0.3-1.2); BLOOD UREA NITROGEN 25 MG/DL (9-23); CALCIUM LEVEL 9.6 MG/DL (8.3-10.6); CARBON DIOXIDE LEVEL 26 MMOL/L (20-31); CHLORIDE LEVEL 109 MMOL/L (98-107); CREATININE FOR GFR 1.27 MG/DL (0.70-1.30); GLOMERULAR FILTRATION RATE 56.8 (>35); GLUCOSE, FASTING 338 MG/DL (74-106); POTASSIUM SERUM 4.6 MMOL/L (3.5-5.1); SODIUM LEVEL 141 MMOL/L (136-145); TOTAL PROTEIN 6.3 G/DL (5.7-8.2)
== END ==
LOC: SKLAB8 06:27
PROVIDERS: ATTEND Internal Medicine
DX: N18.9 Chronic kidney disease, unspecified (principal); E11.22 Type 2 diabetes mellitus with diabetic chronic kidney disease

== ENCOUNTER → 2024-07-27 | Outpatient (REF) | payer MEDICARE, OTHER ==
[2024-07-27 16:03] LABS: BASO % 0.6 % (0.0-1.0); EOS # 0.3 10^3/uL (0.0-0.5); EOS % 4.5 % (0.0-3.0); HEMATOCRIT 38.5 % (42.0-52.0); HEMOGLOBIN 13.1 g/dl (13.5-17.5); LYMPH # 2.1 10^3/uL (1.5-5.0); LYMPH % 31.7 % (24.0-44.0); MEAN CORPUSCULAR HEMOGLOBIN 29.5 pg (27.0-33.0); MEAN CORPUSCULAR VOLUME 86.7 fl (80.0-96.0); MONO # 0.6 10^3/uL (0.0-0.8); MONO % 9.2 % (2.0-8.0); NEUTROPHILS # 3.5 10^3/uL (1.5-8.5); NEUTROPHILS % 51.6 % (36.0-66.0); PLATELET COUNT, AUTOMATED 247 10^3/uL (150-450); RED BLOOD COUNT 4.44 10^6/uL (4.30-6.10); WHITE BLOOD COUNT 6.7 10^3/uL (4.0-10.0)
[2024-07-27 16:35] LABS: ALKALINE PHOSPHATASE 81 U/L (40-129); ALT/SGPT < 9 U/L (7.0-40); AST/SGOT 9 U/L (<34); BILIRUBIN,TOTAL 0.3 MG/DL (0.3-1.2); BLOOD UREA NITROGEN 37 MG/DL (9-23); CALCIUM LEVEL 9.2 MG/DL (8.3-10.6); CARBON DIOXIDE LEVEL 25 MMOL/L (20-31); CHLORIDE LEVEL 104 MMOL/L (98-107); CREATININE FOR GFR 1.14 MG/DL (0.70-1.30); GLOMERULAR FILTRATION RATE > 60.0 (>35); GLUCOSE, FASTING 323 MG/DL (74-106); POTASSIUM SERUM 4.5 MMOL/L (3.5-5.1); SODIUM LEVEL 135 MMOL/L (136-145); TOTAL PROTEIN 6.3 G/DL (5.7-8.2)
[2024-07-27 16:38] LABS: THYROID STIMULATING HORMONE 0.804 uIU/ML (0.55-4.78)
== END ==
LOC: SKLAB8 07:00
PROVIDERS: ATTEND Internal Medicine
DX: R53.83 Other fatigue (principal); E11.65 Type 2 diabetes mellitus with hyperglycemia

== ENCOUNTER 2024-08-30 20:40 | Emergency (ER) | payer MEDICARE, OTHER ==
[~2024-08-30] VITALS: Ht 175.3 cm; Wt 84.0 kg
[~2024-08-30 20:40] MED LIST changes: -CEFU50TA PO
[2024-08-30 21:16] LABS: BASO % 0.3 % (0.0-1.0); EOS # 0.2 10^3/uL (0.0-0.5); EOS % 2.9 % (0.0-3.0); HEMATOCRIT 39.7 % (42.0-52.0); HEMOGLOBIN 13.3 g/dl (13.5-17.5); LYMPH # 2.1 10^3/uL (1.5-5.0); LYMPH % 30.7 % (24.0-44.0); MEAN CORPUSCULAR HEMOGLOBIN 29.5 pg (27.0-33.0); MEAN CORPUSCULAR HGB CONC 33.5 g/dl (32.0-36.5); MONO # 0.9 10^3/uL (0.0-0.8); NEUTROPHILS # 3.6 10^3/uL (1.5-8.5); NEUTROPHILS % 52.1 % (36.0-66.0); PLATELET COUNT, AUTOMATED 263 10^3/uL (150-450); RED BLOOD COUNT 4.51 10^6/uL (4.30-6.10); WHITE BLOOD COUNT 6.9 10^3/uL (4.0-10.0)
[2024-08-30 21:31] LABS: INR 0.91; PARTIAL THROMBOPLASTIN TIME 21.5 SECONDS (24.8-34.2); PROTHROMBIN TIME 12.6 SECONDS (12.5-14.5)
[2024-08-30] MEDS: LIDOCAINE 2% 5ML JELLY UROJET TOP ONE (23:23)
[2024-08-30] MEDS ORDERED: METOPROLOL TART 25 MG TABLET PO ONE (23:25)
[2024-08-30] MEDS: METOPROLOL TART 12.5 MG PER 1/2 TAB PO ONE (23:45)
[2024-08-31] MEDS: METOPROLOL TART 25 MG TABLET PO ONE (00:46)
[2024-08-31 00:59] VITALS: BP 200/85
[2024-08-31] MEDS: cefTRIAXone SOD 1 GM in DEXTROSE 5% (D5W) ADV/MINI-BAG 50 ML IV ONE (02:49)
[2024-08-31 05:00] VITALS: BP 148/74; TEMP 97.8; O2SAT 95
[2024-08-31] MEDS ORDERED: CEFU50TA PO (05:48)
== END 2024-08-31 06:37 | disposition home or self-care (01) ==
LOC: M ED 20:40
DX: N39.0 Urinary tract infection, site not specified (principal); G93.41 Metabolic encephalopathy; I12.9 Hypertensive chronic kidney disease with stage 1 through stage 4 chronic kidney disease, or unspecified chronic kidney disease; E11.9 Type 2 diabetes mellitus without complications; E78.5 Hyperlipidemia, unspecified; G31.83 Neurocognitive disorder with Lewy bodies; F41.9 Anxiety disorder, unspecified; F32.9 Major depressive disorder, single episode, unspecified; Z79.899 Other long term (current) drug therapy
CPT/HCPCS: 36415; 51701; 70450; 71045; 80047; 80053; 81001; 83036; 85025; 85610; 85730; 86850; 86900; 86901; 87040; 87077; 87086; 87154; 87186; 93005; 93041; 94760; 96374; 99285; J0696

== ENCOUNTER → 2024-08-30 | Outpatient (REF) | payer MEDICARE, OTHER ==
[~2024-08-30] MED LIST changes: +CEFU50TA PO
[2024-08-30 09:36] LABS: BASO % 0.4 % (0.0-1.0); EOS # 0.2 10^3/uL (0.0-0.5); EOS % 3.3 % (0.0-3.0); HEMATOCRIT 40.4 % (42.0-52.0); HEMOGLOBIN 13.2 g/dl (13.5-17.5); LYMPH # 1.6 10^3/uL (1.5-5.0); LYMPH % 21.5 % (24.0-44.0); MEAN CORPUSCULAR HEMOGLOBIN 29.3 pg (27.0-33.0); MEAN CORPUSCULAR HGB CONC 32.7 g/dl (32.0-36.5); MEAN CORPUSCULAR VOLUME 89.8 fl (80.0-96.0); MONO # 0.7 10^3/uL (0.0-0.8); MONO % 9.8 % (2.0-8.0); NEUTROPHILS # 4.6 10^3/uL (1.5-8.5); NEUTROPHILS % 63.8 % (36.0-66.0); PLATELET COUNT, AUTOMATED 287 10^3/uL (150-450); WHITE BLOOD COUNT 7.3 10^3/uL (4.0-10.0)
[2024-08-30 09:54] LABS: ALBUMIN 3.4 G/DL (3.2-5.2); ALKALINE PHOSPHATASE 55 U/L (40-129); ALT/SGPT 10 U/L (7.0-40); AST/SGOT 9 U/L (<34); BILIRUBIN,TOTAL 0.7 MG/DL (0.3-1.2); BLOOD UREA NITROGEN 24 MG/DL (9-23); CALCIUM LEVEL 9.6 MG/DL (8.3-10.6); CARBON DIOXIDE LEVEL 27 MMOL/L (20-31); CHLORIDE LEVEL 107 MMOL/L (98-107); CREATININE FOR GFR 1.07 MG/DL (0.70-1.30); GLOMERULAR FILTRATION RATE > 60.0 (>35); GLUCOSE, FASTING 142 MG/DL (74-106); POTASSIUM SERUM 4.8 MMOL/L (3.5-5.1); SODIUM LEVEL 142 MMOL/L (136-145); TOTAL PROTEIN 6.6 G/DL (5.7-8.2)
[2024-08-30 11:16] LABS: HEMOGLOBIN A1c 9.2 % (4.0-6.0)
== END ==
LOC: SKLAB8 07:50
PROVIDERS: ATTEND Internal Medicine
DX: E11.9 Type 2 diabetes mellitus without complications (principal); I10 Essential (primary) hypertension